=== PATIENT | female | born 1950 | race Caucasian/White ===

== ENCOUNTER 2017-01-05 11:22 | Observation (INO) | payer OTHER ==
[2017-01-05] VITALS (10 sets, daily range): BP systolic 128–173; BP diastolic 65–95; PULSE 56–89; RESP 18–22; TEMP 95.7–98.7; O2SAT 95–98
[~2017-01-05] VITALS: Ht 154.9 cm; Wt 97.5 kg
[~2017-01-05 11:22] MED LIST: ATOR10 PO; FLUC100T41 PO; HYDR15TA PO; LEVA500T PO; PANT20 PO
[2017-01-05] MEDS ORDERED: ATOR10TA15 PO (11:34)
[2017-01-05] MEDS ORDERED: SODIUM CHLORIDE 0.9% FLUSH 5 ML FLUSH IVF PRN ×2 (11:45→13:15)
[2017-01-05] MEDS ORDERED: ASPIRIN 325 MG TAB PO ONE (11:45)
--- NOTE | 2017-01-05 11:46 | PD ---
HPI Chief Complaint: Cardiac Complaint Time Seen by Provider: 11:36 Travel History International Travel<30 days: No Contact w/Intl Traveler<30days: No Traveled to known affect area: No History of Present Illness HPI 66yo F with PMH of HLD presents to the ED with c/o chest pain for 20 minutes. Pt was pushing a cart at [employer] when she felt dull chest pain across her chest and radiating up her jaw. Pain is intermittent, lasting minutes at a time and associated with sob. Had some numbness in left hand as well. Denies any diaphoresis, fever, n/v, abdominal pain, focal weakness. Pt never had similar chest pain like his before. Does not have a geologist petroleum. Pt had routine follow up with her sales audit clerk today. States he actually does not have a connective tissue disease and she was misdiagnosed. Former smoker, quit 3 years ago. Pt has been having cough, URI symptoms for 1 week. 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) Implanted Vascular Access Dvce: Yes Kidney Stones: No Musculoskeletal: Yes (CHRONIC RIGHT ANKLE PAIN) Neurologic: Yes Psychiatric: No Reproductive: Yes (hysterectomy) Respiratory: Yes Immunizations Current: Yes Pneumonia: Yes (FREQUENT MICOPLASMA) Renal Failure: No Sleep Apnea: No Ulcer: No Past Surgical History Abdominal Surgery: Yes (sandhya ) Appendectomy: Yes Body Medical Devices: pins and plates in ankles Cardiac Surgery: No Cholecystectomy: Yes Gynecologic Surgery: Yes (HYSTERECTOMY) Hysterectomy: Yes Oral Surgery: Yes (tonsills) Thoracic Surgery: No Tonsillectomy: Yes Other Surgery: Yes (PLANTERS FACIATIS) Social History Alcohol Use: Yes (1-2 DAYS/ MONTH AT HAPPY HOUR) Tobacco Use: No (DENIES) Substance Use: No Allergies-Medications (Allergen,Severity, Reaction): Coded Allergies: Codeine (Verified Allergy, Severe, NAUSEA, 01/05/17) Reported Meds & Prescriptions Reported Meds & Active Scripts Active Reported Atorvastatin (Atorvastatin Calcium) 10 Mg Tab Unknown Dose PO HS Review of Systems Except as stated in HPI: all other systems reviewed are Neg Physical Exam Narrative GENERAL: 66yo F not in distress. SKIN: Warm and dry. HEAD: Atraumatic. Normocephalic. EYES: Pupils equal and round. No scleral icterus. No injection or drainage. ENT: No nasal bleeding or discharge. Mucous membranes pink and moist. NECK: Trachea midline. No JVD. CARDIOVASCULAR: Regular rate and rhythm. No murmur appreciated. RESPIRATORY: No accessory muscle use. Clear to auscultation. Breath sounds equal bilaterally. GASTROINTESTINAL: Abdomen soft, non-tender, nondistended. No rebound tenderness or guarding. MUSCULOSKELETAL: No obvious deformities. No clubbing. No cyanosis. Trace lower extremity edema. No calf tenderness bilaterally. NEUROLOGICAL: Awake and alert. No obvious cranial nerve deficits. Motor grossly within normal limits. Normal speech. PSYCHIATRIC: Appropriate mood and affect; insight and judgment normal. Data Data Last Documented VS Vital Signs Date Time Temp Pulse Resp B/P Pulse Ox O2 Delivery O2 Flow Rate FiO2 01/05/17 12:35 58 20 142/72 97 01/05/17 11:50 Nasal Cannula 2 01/05/17 11:30 98.7 Orders Basic Metabolic Panel (Bmp) (01/05/17 11:36) Ckmb (Isoenzyme) Profile (01/05/17 11:36) Complete Blood Count With Diff (01/05/17 11:36) Magnesium (Mg) (01/05/17 11:36) Prothrombin Time / Inr (Pt) (01/05/17 11:36) Act Partial Throm Time (Ptt) (01/05/17 11:36) Troponin I (01/05/17 11:36) Chest, Single Ap (01/05/17 11:36) Ecg Monitoring (01/05/17 11:36) Bilateral Bp Monitoring (01/05/17 11:36) Iv Access Insert/Monitor (01/05/17 11:36) Oximetry (01/05/17 11:36) Oxygen Administration (01/05/17 11:36) Aspirin (Aspirin) (01/05/17 11:45) Sodium Chloride 0.9% Flush (Ns Flush) (01/05/17 11:45) Nitroglycerin Sl (Nitrostat Sl) (01/05/17 11:45) CKMB (01/05/17 11:40) CKMB% (01/05/17 11:40) Labs Laboratory Tests Test 01/05/17 11:40 White Blood Count 14.6 TH/MM3 Red Blood Count 4.59 MIL/MM3 Hemoglobin 14.2 GM/DL Hematocrit 41.9 % Mean Corpuscular Volume 91.5 FL Mean Corpuscular Hemoglobin 31.0 PG Mean Corpuscular Hemoglobin 33.9 % Concent Red Cell Distribution Width 12.5 % Platelet Count 366 TH/MM3 Mean Platelet Volume 7.7 FL Neutrophils (%) (Auto) 66.1 % Lymphocytes (%) (Auto) 21.1 % Monocytes (%) (Auto) 5.3 % Eosinophils (%) (Auto) 3.0 % Basophils (%) (Auto) 4.5 % Neutrophils # (Auto) 9.6 TH/MM3 Lymphocytes # (Auto) 3.1 TH/MM3 Monocytes # (Auto) 0.8 TH/MM3 Eosinophils # (Auto) 0.4 TH/MM3 Basophils # (Auto) 0.7 TH/MM3 CBC Comment DIFF FINAL Differential Comment Prothrombin Time 10.8 SEC Prothromb Time International 1.0 RATIO Ratio Activated Partial 29.0 SEC Thromboplast Time Sodium Level 143 MEQ/L Potassium Level 3.8 MEQ/L Chloride Level 107 MEQ/L Carbon Dioxide Level 27.6 MEQ/L Anion Gap 8 MEQ/L Blood Urea Nitrogen 16 MG/DL Creatinine 0.76 MG/DL Estimat Glomerular Filtration 76 ML/MIN Rate Random Glucose 102 MG/DL Calcium Level 8.5 MG/DL Magnesium Level 2.4 MG/DL Total Creatine Kinase 107 U/L Creatine Kinase MB 2.8 NG/ML Troponin I LESS THAN 0.02 NG/ML [facility] Medical Decision Making Medical Screen Exam Complete: Yes Emergency Medical Condition: Yes Interpretation(s) EKG: NSR 63bpm. LAD. Q wave III, aVF. No ST segment elevation or depression. Differential Diagnosis ACS vs. PNA vs. anxiety vs. musculoskeletal pain vs. pericarditis Narrative Course 66yo F with intermittent chest pain that started 20 minutes prior to arrival. Pt has not had this before. Presentation is concerning for ACS. EKG unremarkable. Pt given aspirin 325mg PO and sublingual nitro PRN chest pain. Labs reviewed, mild leukocytosis at 14.6. Troponin negative. CXR showd no acute disease. Pt reevaluated at bedside. States numbness in left hand has resolved. Chest pain is now more on right side. Pt has not had any chest pain work up recently. Will admit to chest pain center for serial EKG and cardiac enzyme. Discussed with patient and she agrees to plan. Discussed with Dr. Sr and accepted to her service. Diagnosis Primary Impression: Chest pain Qualified Code: R07.9 - Chest pain, unspecified type Admitting Information Admitting Physician Requests: Observation Linda Ayala DO Jan 05, 2017 11:46 Linda Ayala DO Jan 05, 2017 11:46
[2017-01-05] MEDS: NITROGLYCERIN 0.4 MG SL 25 TABS/BTL SL SCH ×3 (11:49→12:35)
[2017-01-05 11:55] LABS: AUTOMATED NEUTROPHIL # 9.6 TH/MM3 (1.8-7.7); BASOPHIL # 0.7 TH/MM3 (0-0.2); BASOPHIL % 4.5 % (0.0-2.0); EOSINOPHIL # 0.4 TH/MM3 (0-0.4); HEMATOCRIT 41.9 % (35.0-46.0); HEMO FLAGS DIFF FINAL; LYMPH % 21.1 % (9.0-44.0); LYMPHOCYTE # 3.1 TH/MM3 (1.0-4.8); MEAN CELL VOLUME 91.5 FL (80.0-100.0); MEAN CORPUSCULAR HGB CONC 33.9 % (32.0-36.0); MONO % 5.3 % (0.0-8.0); NEUT % 66.1 % (16.0-70.0); PLATELET COUNT 366 TH/MM3 (150-450); RED BLOOD COUNT 4.59 MIL/MM3 (4.00-5.30); RED CELL DISTRIBUTION WIDTH 12.5 % (11.6-17.2); WHITE BLOOD COUNT 14.6 TH/MM3 (4.0-11.0)
--- NOTE | 2017-01-05 11:58 | RADHPO ---
EXAM DATE/TIME: 01/05/2017 11:43 [facility] COMPARISON: CHEST SINGLE AP, July 12, 2014, 14:45. INDICATIONS : Chest pain. MEDICAL HISTORY : Hypercholesterolemia. Gastroesophageal reflux disease. SURGICAL HISTORY : Tonsillectomy. Cholecystectomy. Hysterectomy. Appendectomy. ORIF right ankle. ENCOUNTER: Initial ACUITY: 1 day PAIN SCORE: 6/10 LOCATION: chest FINDINGS: A single view of the chest demonstrates the lungs to be symmetrically aerated without evidence of mas s, infiltrate or effusion. The cardiomediastinal contours are unremarkable. Osseous structures are intact. CONCLUSION: No acute disease. No significant change has occurred. Rony Bruno MD on January 05, 2017 at 11:56 Board Certified Radiologist. This report was verified electronically.
[2017-01-05 12:03] LABS: CHLORIDE 107 MEQ/L (98-107); POTASSIUM 3.8 MEQ/L (3.5-5.1); SODIUM (NA) 143 MEQ/L (136-145)
[2017-01-05 12:07] LABS: ANION GAP 8 MEQ/L (5-15); BICARBONATE 27.6 MEQ/L (21.0-32.0); MAGNESIUM 2.4 MG/DL (1.5-2.5)
[2017-01-05 12:10] LABS: GLOMERULAR FILTRATION RATE 76 ML/MIN (>89)
[2017-01-05 12:11] LABS: BLOOD UREA NITROGEN 16 MG/DL (7-18)
[2017-01-05 12:14] LABS: CREATINE KINASE 107 U/L (26-192)
[2017-01-05 12:17] LABS: PROTHROMBIN TIME - PATIENT 10.8 SEC (9.8-11.6)
[2017-01-05 12:26] LABS: CKMB 2.8 NG/ML (0.5-3.6)
[2017-01-05] MEDS ORDERED: ACETAMINOPHEN 500 MG CPLT PO PRN (13:15)
[2017-01-05] MEDS ORDERED: MORPHINE SULFATE 4 MG/ML INJ IV PRN (13:15)
[2017-01-05] MEDS ORDERED: NITROGLYCERIN 0.4 MG SL 25 TABS/BTL SL PRN (13:15)
[2017-01-05] MEDS ORDERED: ONDANSETRON HCL 4 MG/2 ML VIAL IV PRN (13:15)
--- NOTE | 2017-01-05 13:34 | HHI.HP ---
[facility] Krista Lepe MD Admission Diagnosis Chest pain Diagnoses: (1) Chest pain Diagnosis: Principal (2) Leukocytosis Diagnosis: Principal Chief Complaint: chest pain Travel History International Travel<30 Days: No Contact w/Intl Traveler <30 Da: No Traveled to Known Affected Are: No History of Present Illness 66-year-old female with history of hyperlipidemia presents with complaint of chest pain. Patient states she was at [employer] pushing the cart when she started to experience chest pain stating it "exploded" with pain throughout her whole chest describing it as heavy. She states pain radiated to her left jaw and she experienced numbness in her left hand. She additionally felt lightheaded. She initially decided to go home and rest, but then turned around and came to the ER. Patient feels better now and states Nitro relieved the pain. She denies having any gas pain or nausea or vomiting. Patient additionally has had some congestion and a dry cough. Denies any fevers. She believes that the chest pain is due to stress. She states she has had a lot of stress related to insurance referrals. She states she hurt her left knee and foot 3-5 weeks ago and went to see the orthopedic doctor but could only have the left knee examined as there was no referral for the foot, and is still awaiting appointment for examination of the foot. She also had issues with seeing her telecommunications line installer today and was on the phone yesterday trying to get a new referral, going back and forth between PCP and specialist. Review of Systems Except as stated in HPI: all other systems reviewed are Neg Past Family Social History Past Medical History Hyperlipidemia Occasional indigestion Left knee arthritis Torn meniscus Past Surgical History ORIF right ankle fracture Cholecystectomy Appendectomy Hysterectomy Tonsillectomy Plantar fasciitis Reported Medications Atorvastatin (Atorvastatin Calcium) 10 Mg Tab Unknown Dose PO HS Allergies: Coded Allergies: Codeine (Verified Allergy, Severe, NAUSEA, 01/05/17) Family History Father: Alcoholic Mother: Had a coronary artery stent placed at age 78. Social History Patient admits to occasional alcohol use. Quit smoking cigarettes 3 years ago. Smoked for 50 years. Physical Exam Vital Signs Vital Signs Date Time Temp Pulse Resp B/P Pulse Ox O2 Delivery O2 Flow Rate FiO2 01/05/17 13:30 56 18 128/71 98 Nasal Cannula 2 01/05/17 12:35 58 20 142/72 97 01/05/17 11:50 58 20 144/74 97 Nasal Cannula 2 153/95 01/05/17 11:46 Nasal Cannula 2 01/05/17 11:46 98 01/05/17 11:30 98.7 89 20 137/65 97 Physical Exam GENERAL: This is a well-nourished, well-developed patient, in no apparent distress. SKIN: No rashes, ecchymoses or lesions. Warm and dry. HEAD: Atraumatic. Normocephalic. EYES: No scleral icterus. No injection or drainage. CARDIOVASCULAR: Regular rate and rhythm without murmurs, gallops, or rubs. RESPIRATORY: Clear to auscultation. Breath sounds equal bilaterally. No wheezes , rales, or rhonchi. GASTROINTESTINAL: Abdomen soft, non-tender, nondistended. No guarding. MUSCULOSKELETAL: No lower extremity edema. 2+ L DP pulse. NEUROLOGICAL: Awake and alert. Motor grossly within normal limits. Normal speech. PSYCHIATRIC: Appears under stress. Normal insight and judgement. Laboratory Laboratory Tests Test 01/05/17 11:40 White Blood Count 14.6 Red Blood Count 4.59 Hemoglobin 14.2 Hematocrit 41.9 Mean Corpuscular Volume 91.5 Mean Corpuscular Hemoglobin 31.0 Mean Corpuscular Hemoglobin 33.9 Concent Red Cell Distribution Width 12.5 Platelet Count 366 Mean Platelet Volume 7.7 Neutrophils (%) (Auto) 66.1 Lymphocytes (%) (Auto) 21.1 Monocytes (%) (Auto) 5.3 Eosinophils (%) (Auto) 3.0 Basophils (%) (Auto) 4.5 Neutrophils # (Auto) 9.6 Lymphocytes # (Auto) 3.1 Monocytes # (Auto) 0.8 Eosinophils # (Auto) 0.4 Basophils # (Auto) 0.7 CBC Comment DIFF FINAL Differential Comment Prothrombin Time 10.8 Prothromb Time International 1.0 Ratio Activated Partial 29.0 Thromboplast Time Sodium Level 143 Potassium Level 3.8 Chloride Level 107 Carbon Dioxide Level 27.6 Anion Gap 8 Blood Urea Nitrogen 16 Creatinine 0.76 Estimat Glomerular Filtration 76 Rate Random Glucose 102 Calcium Level 8.5 Magnesium Level 2.4 Total Creatine Kinase 107 Creatine Kinase MB 2.8 Troponin I LESS THAN 0.02 Result Diagram: 01/05/17 1140 01/05/17 1140 Imaging Last Impressions Chest X-Ray 01/05/17 1136 Signed Impressions: Service Date/Time: Thursday, January 05, 2017 11:43 - CONCLUSION: No acute disease. No significant change has occurred. Rony Bruno MD Assessment and Plan Assessment and Plan 66-year-old female with: Chest pain: Chest pain is likely attributed to stress, but patient did experience pain radiating to the left jaw and numbness in the left hand and Nitro relieved the pain. EKG personally interpreted with normal sinus rhythm and no evidence of ischemia. Troponin less than 0.02. -Serial EKGs and enzymes -325 mg daily aspirin -Nitroglycerin/morphine for pain -Patient is not a candidate for ETT due to her left knee and foot issues. Provided ACS is ruled out, Lexiscan will be ordered for tomorrow morning. Patient had coffee this morning. NPO after midnight. Leukocytosis: CBC with elevated white blood cell count 14.6. likely stress reaction. Patient has some congestion and cough but it is nonproductive. Chest x-ray personally interpreted with no acute disease. Afebrile with good O2 saturation. -Monitor CBC DVT prevention: SCDs. Written by Donna Zeng PA-C acting as scribe for Dr. Sr on 01/05/17 at ~ 1320. The documentation accurately reflects the work and decisions performed face-to- face by me Dr. Sr on 01/05/17 at ~1320. Medical Decision Making Impression and Plan The exam, history, and the medical decision-making described in the above note were completed with the assistance of the mid-level provider. I reviewed and agree with the findings presented. I attest that I had a [id number] encounter with the patient on the same day, and personally performed and documented my assessment and findings in the medical record. Atypical CP which will need further cardiac testing. 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
[2017-01-05 15:07] LABS: CREATINE KINASE 113 U/L (26-192)
[2017-01-05 15:19] LABS: CKMB 2.5 NG/ML (0.5-3.6)
[2017-01-05 18:41] LABS: CREATINE KINASE 82 U/L (26-192)
[2017-01-05] MEDS: SODIUM CHLORIDE 0.9% FLUSH 5 ML FLUSH IVF SCH (21:25)
--- NOTE | 2017-01-05 21:37 | EKG ---
Date Performed: 01/05/2017 Time Performed: 11:35:56 PTAGE: 66 years EKG: Sinus rhythm . Normal ECG PREVIOUS TRACING : 07/12/2014 14.53 Compared to the previous tracing, tachycardia no longer pr esent DOCTOR: Compa Whitt Interpretating Date/Time 01/05/2017 21:37:21
--- NOTE | 2017-01-05 22:42 | EKG ---
Date Performed: 01/05/2017 Time Performed: 17:24:56 PTAGE: 66 years EKG: Sinus rhythm Normal ECG PREVIOUS TRACING : 01/05/2017 14.48 Compared to prior tracing no significant change DOCTOR: Abhishek Smith Interpretating Date/Time 01/05/2017 22:40:18
--- NOTE | 2017-01-05 23:01 | EKG ---
Date Performed: 01/05/2017 Time Performed: 14:48:28 PTAGE: 66 years EKG: Sinus bradycardia Normal ECG except for rate PREVIOUS TRACING : 01/05/2017 11.35 Compared to prior tracing no significant change DOCTOR: Abhishek Smith Interpretating Date/Time 01/05/2017 23:00:04
[2017-01-06] VITALS: BP 138/82; PULSE 69; RESP 16; TEMP 96.7; O2SAT 95
[2017-01-06 04:00] VITALS: BP 143/82; PULSE 70; RESP 20; TEMP 97.4; O2SAT 95
[2017-01-06 07:15] VITALS: O2SAT 95
[2017-01-06 07:19] LABS: AUTOMATED NEUTROPHIL # 8.6 TH/MM3 (1.8-7.7); BASOPHIL # 0.1 TH/MM3 (0-0.2); BASOPHIL % 0.5 % (0.0-2.0); EOSINOPHIL # 0.4 TH/MM3 (0-0.4); EOSINOPHIL % 3.2 % (0.0-4.0); HEMATOCRIT 43.5 % (35.0-46.0); LYMPH % 23.3 % (9.0-44.0); MEAN CELL VOLUME 92.2 FL (80.0-100.0); MEAN CORPUSCULAR HEMOGLOBIN 30.4 PG (27.0-34.0); MONO % 4.7 % (0.0-8.0); NEUT % 68.3 % (16.0-70.0); PLATELET COUNT 349 TH/MM3 (150-450); RED BLOOD COUNT 4.72 MIL/MM3 (4.00-5.30); WHITE BLOOD COUNT 12.7 TH/MM3 (4.0-11.0)
[2017-01-06 07:23] LABS: HEMO FLAGS DIFF FINAL
[2017-01-06 08:00] VITALS: BP 123/81; PULSE 66; RESP 17; TEMP 97.9; O2SAT 94
[2017-01-06] MEDS ORDERED: REGADENOSON INJ 0.4 MG/5 ML SYR IV ONE (08:17)
[2017-01-06] MEDS: SODIUM CHLORIDE 0.9% FLUSH 5 ML FLUSH IVF SCH (09:00)
[2017-01-06] MEDS ORDERED: ASPIRIN 325 MG TAB PO SCH (09:00)
--- NOTE | 2017-01-06 09:03 | RADHPO ---
EXAM DATE/TIME: 01/06/2017 08:00 [facility] COMPARISON: No previous studies available for comparison. INDICATIONS : Mid chest pain radiating to the jaw for one day. Unable to walk on treadmill. DOSE: 26.6 mCi Tc99m Myoview at stress. 8.7 mCi Tc99m Myoview at rest. 0.4 mg Lexiscan STRESS SYMPTOMS: Stomach cramps. EJECTION FRACTION: 70% MEDICAL HISTORY : Hyperlipidemia. SURGICAL HISTORY : Hysterectomy. Tonsillectomy. Cholecystectomy. ENCOUNTER: Initial ACUITY: 1 day PAIN SCALE: 10/10 LOCATION: Midsternal chest TECHNIQUE: The patient underwent pharmacologic stress with infusion of prescribed dose. Continuous ECG tracing was monitored during stress. Gated SPECT imaging was performed after stress and conventional SPECT i maging was performed at rest. The examination was performed on a SPECT/CT scanner, both attenuation and non-corrected datasets were reviewed. FINDINGS: DISTRIBUTION: The maximum perfused segment at stress is in the anterior wall. PERFUSION STUDY: The pattern of perfusion at stress is within normal limits. GATED STUDY: There is intact wall motion and thickening without hypokinetic or dyskinetic segments. CONCLUSION: Normal examination. RISK CATEGORY: Low (<1% Annual Mortality Rate) Thad Marcos MD on January 06, 2017 at 9:00 Board Certified Radiologist. This report was verified electronically.
--- NOTE | 2017-01-06 09:17 | HHI.DCPOC ---
Discharge Care Plan Diagnosis: (1) Chest pain (2) Leukocytosis Your Health Problems Are: Anxiety Chest Pain Goals to Promote Your Health * To prevent worsening of your condition and complications * To maintain your health at the optimal level Directions to Meet Your Goals Take your medications as prescribed Follow your dietary instruction Follow activity as directed Keep your appointments as scheduled Take your immunizations and boosters as scheduled If your symptoms worsen call your PCP, if no PCP go to Urgent Care Center or Emergency Room Smoking is Dangerous to Your Health. Avoid second hand smoke Call the 24-hour hour crisis hotline for domestic abuse at Donna Zeng Jan 06, 2017 09:17
[2017-01-06 11:15] VITALS: PULSE 69
--- NOTE | 2017-01-06 13:52 | HHI.DS ---
Discharge Summary Admission Date Jan 05, 2017 at 13:01 Discharge Date: Jan 06, 2017 Admitting Diagnosis Chest pain (1) Chest pain ICD Code: R07.9 Diagnosis: Principal (2) Leukocytosis ICD Code: D72.829 Diagnosis: Principal Procedures none Brief History - From Admission 66-year-old female with history of hyperlipidemia presents with complaint of chest pain. Patient states she was at [employer] pushing the cart when she started to experience chest pain stating it "exploded" with pain throughout her whole chest describing it as heavy. She states pain radiated to her left jaw and she experienced numbness in her left hand. She additionally felt lightheaded. She initially decided to go home and rest, but then turned around and came to the ER. Patient feels better now and states Nitro relieved the pain. She denies having any gas pain or nausea or vomiting. Patient additionally has had some congestion and a dry cough. Denies any fevers. She believes that the chest pain is due to stress. She states she has had a lot of stress related to insurance referrals. She states she hurt her left knee and foot 3-5 weeks ago and went to see the orthopedic doctor but could only have the left knee examined as there was no referral for the foot, and is still awaiting appointment for examination of the foot. She also had issues with seeing her carpenter railcar today and was on the phone yesterday trying to get a new referral, going back and forth between PCP and specialist. CBC/BMP: 01/06/17 0650 01/05/17 1140 Significant Findings Laboratory Tests Test 01/05/17 01/05/17 01/05/17 01/06/17 11:40 14:40 17:35 06:50 White Blood Count 14.6 TH/MM3 12.7 TH/MM3 (4.0-11.0) (4.0-11.0) Basophils (%) (Auto) 4.5 % (0.0-2.0) Neutrophils # (Auto) 9.6 TH/MM3 8.6 TH/MM3 (1.8-7.7) (1.8-7.7) Basophils # (Auto) 0.7 TH/MM3 (0-0.2) Estimat Glomerular Filtration 76 ML/MIN (>89) Rate Troponin I LESS THAN 0.02 LESS THAN 0.02 LESS THAN 0.02 NG/ML NG/ML NG/ML (0.02-0.05) (0.02-0.05) (0.02-0.05) Imaging Last Impressions Myocardial Perfusion Scan Nuc Med 01/06/17 0700 Signed Impressions: Service Date/Time: December 08:00 - CONCLUSION: Normal examination. RISK CATEGORY: Low (<1%% Annual Mortality Rate) Thad Marcos MD Chest X-Ray 01/05/17 1136 Signed Impressions: Service Date/Time: Thursday, January 05, 2017 11:43 - CONCLUSION: No acute disease. No significant change has occurred. Rony Bruno MD PE at Discharge GENERAL: This is a well-nourished, well-developed patient, in no apparent distress. CARDIOVASCULAR: Regular rate and rhythm without murmurs, gallops, or rubs. RESPIRATORY: Clear to auscultation. Breath sounds equal bilaterally. No wheezes , rales, or rhonchi. GASTROINTESTINAL: Abdomen soft, non-tender, nondistended. Normal active bowel sounds MUSCULOSKELETAL: Extremities without clubbing, cyanosis, or edema. NEURO: Alert & Oriented x4 to person, place, time, situation. Moves all ext x4 Pt update on day of discharge Patient seen in follow up for atypical CP. ST negative. Patient will eed to follow up for anxiety with pcp Hospital Course Patient admitted with CP that appears non-cardiac after ST is negative, Overall no further complaints other than anxiety Pt Condition on Discharge: Good Discharge Disposition: Discharge Home Discharge Time: > 30 minutes Discharge Instructions DIET: Follow Instructions for: Heart Healthy Diet Activities you can perform: Regular-No Restrictions Follow up Referrals: PCP Follow-up - 2-3 Days with Krista Lepe MD Continued Medications: Atorvastatin (Atorvastatin) 10 Mg Tab Unknown Dose PO HS Cholesterol Management #30 Ref 0 TAB Yumi Sr MD Jan 06, 2017 13:52
--- NOTE | 2017-01-06 19:43 | TR ---
Date Performed: 01/06/2017 Time Performed: 08:06:56 DOCTOR: Freya Barboza DRUG LIST: CLINICAL HISTORY: CONTRAINDICATION TO ETT REASON FOR TEST: CANNOT DO ETT REASON FOR ENDING: OBSERVATION: CONCLUSION: Lexiscan stress test was performed under standard four minute protocol. Radionuclid e was injected one minute prior to ending the test. No electrocardiographic abormalities were present to suggest ischemia. Nuclear imaging and interpretation are pending. COMMENTS:
== END 2017-01-06 11:26 | disposition home or self-care (01) ==
LOC: PHED 11:22 → PHEDA 13:01 → PH3A 13:54
PROVIDERS: ADMIT Hospitalist; ATTEND Hospitalist
DX: R07.9 Chest pain, unspecified (principal); R06.02 Shortness of breath; R20.0 Anesthesia of skin; Z87.891 Personal history of nicotine dependence; R05 Cough; E78.00 Pure hypercholesterolemia, unspecified; K21.9 Gastro-esophageal reflux disease without esophagitis; D72.829 Elevated white blood cell count, unspecified; R42 Dizziness and giddiness; E78.5 Hyperlipidemia, unspecified; K30 Functional dyspepsia; M17.12 Unilateral primary osteoarthritis, left knee
CPT/HCPCS: 71010; 78452; 80048; 82550; 82552; 83735; 84484; 85025; 85610; 85730; 93005; 93017; 99285; A9502; G0378; J2785

== ENCOUNTER 2017-04-02 19:23 | Inpatient (IN) | payer OTHER, MEDICARE ==
[~2017-04-02] VITALS: Ht 154.9 cm; Wt 103.4 kg
[~2017-04-02 19:23] MED LIST changes: -ATOR10 PO; +ATOR10TA15 PO; -FLUC100T41 PO; -HYDR15TA PO; -LEVA500T PO; -PANT20 PO
[2017-04-02 19:28] VITALS: BP 107/71; PULSE 110; RESP 18; TEMP 98.3
[2017-04-02] MEDS ORDERED: BROMSYP PO (19:49)
[2017-04-02] MEDS ORDERED: IPRASOL INH (19:49)
[2017-04-02] MEDS ORDERED: METH4TAB6 PO (19:49)
[2017-04-02] MEDS ORDERED: FLUT1SPR5 EACH NARE (19:49)
[2017-04-02] MEDS ORDERED: AZIT500T2 PO (19:49)
[2017-04-02] MEDS ORDERED: FLUT1INH INH (19:49)
[2017-04-02] MEDS ORDERED: CETI10 PO (19:49)
[2017-04-02] MEDS ORDERED: UMEC1AER INH (19:49)
--- NOTE | 2017-04-02 19:53 | PD ---
HPI Chief Complaint: Respiratory Distress Time Seen by Provider: 19:50 Travel History International Travel<30 days: Yes Contact w/Intl Traveler<30days: Yes Name of Country Traveled to: [place], [place] Traveled to known affect area: No History of Present Illness HPI 66-year-old female presents to the emergency department for complaint of persistent cough with shortness of breath and secondary abdominal muscle pain due to persistent unremitting cough. Patient has history of previous similar symptoms and diagnosed with mycoplasma pneumonia. Patient's had no fever or chills. Patient symptoms have been present for 7 weeks. Patient has completed 2 courses of oral steroids along with a course of azithromycin and has been using as needed nebulized treatments rescue inhaler and Breo. Patient was hospitalized approximately 8 weeks ago and evaluated for chest pain stress test was done and was negative reportedly. Patient's had no chest pain. Patient denies personal history of bronchitis and emphysema or COPD. Patient denies history of hypertension or diabetes. Patient is a nonsmoker times 3 years but used to smoke 1 ppd. Patient denies personal history family history of clotting disorder. Patient denies any pleuritic chest pain. Patient's cough has been nonproductive. Patient does not use supplemental oxygen at home. Patient has been sleeping upright due to ongoing cough. No report of lower extremity pain or swelling. States she is not improving as an outpatient. Patient just saw her primary care provider this week 03/28/17. 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) Implanted Vascular Access Dvce: Yes Kidney Stones: No Musculoskeletal: Yes (CHRONIC RIGHT ANKLE PAIN) Neurologic: Yes Psychiatric: No Reproductive: Yes (hysterectomy) Respiratory: Yes (PNA) Immunizations Current: Yes Pneumonia: Yes (FREQUENT MICOPLASMA) Renal Failure: No Sleep Apnea: No Ulcer: No ?: Not Past Surgical History Abdominal Surgery: Yes (sandhya ) Appendectomy: Yes Body Medical Devices: pins and plates in ankles Cardiac Surgery: No Cholecystectomy: Yes Gynecologic Surgery: Yes (HYSTERECTOMY) Hysterectomy: Yes Oral Surgery: Yes (tonsills) Thoracic Surgery: No Tonsillectomy: Yes Other Surgery: Yes (PLANTERS FACIATIS) Social History Alcohol Use: Yes (1-2 DAYS/ MONTH AT HAPPY HOUR) Tobacco Use: No (DENIES) Substance Use: No Allergies-Medications (Allergen,Severity, Reaction): Coded Allergies: Codeine (Verified Allergy, Severe, NAUSEA, 04/02/17) Reported Meds & Prescriptions Reported Meds & Active Scripts Active Reported Methylprednisolone 4 Mg Tab 4 Mg PO DAILY Breo Ellipta Inh (Fluticasone/Vilanterol) 100-25 Mcg/Act Inh 1 Puff INH DAILY Use daily at the same time. Anoro Ellipta Inh (Umeclidinium/Vilanterol) 62.5-25 Mcg/Act Aero 1 Puff INH DAILY Duoneb (Ipratropium-Albuterol Neb) 0.5-2.5 Mg/3 Ml Neb 1 Nebule INH Q6HR NEB Flonase Nasal [place] (Fluticasone Nasal [place]) 50 Mcg/Act [place] 50 Mcg EACH NARE BID Azithromycin 500 Mg Tab 500 Mg PO DAILY Cetirizine (Cetirizine HCl) 10 Mg Tab 10 Mg PO DAILY Bromfed DM Liq (Bimbsvsvrhwjoay-Wfdomterauujywb-AF Liq) 30-2-10 Mg/5 Ml Syrp 10 Ml PO Q6H PRN Atorvastatin (Atorvastatin Calcium) 10 Mg Tab Unknown Dose PO HS Review of Systems Except as stated in HPI: all other systems reviewed are Neg General / Constitutional: No: Fever, Chills Eyes: No: Visual changes HENT: Positive: Congestion Cardiovascular: Positive: Dyspnea on exertion, No: Chest Pain or Discomfort, Diaphoresis Respiratory: Positive: Cough, Shortness of Breath, Wheezing Gastrointestinal: No: Abdominal Pain Genitourinary: No: Flank Pain Musculoskeletal: No: Myalgias, Arthralgias, Edema Skin: No Rash Neurologic: No: Weakness Psychiatric: Positive: Anxiety Endocrine: No: Heat Intolerance Hematologic/Lymphatic: No: Easy Bruising Physical Exam Narrative GENERAL: Well-developed well-nourished mildly anxious female with mild respiratory distress with wheezing; no hoarseness or stridor. SKIN: Warm and dry. HEAD: Normocephalic. EYES: No scleral icterus. No injection or drainage. NECK: Supple, trachea midline. No JVD or lymphadenopathy. CARDIOVASCULAR: Regular rate and rhythm without murmurs, gallops, or rubs. RESPIRATORY: Breath sounds equal bilaterally diminished with expiratory wheezing. No accessory muscle use. GASTROINTESTINAL: Abdomen soft, non-tender, nondistended. MUSCULOSKELETAL: No cyanosis, or edema. BACK: Nontender without obvious deformity. No CVA tenderness. Data Data Last Documented VS Vital Signs Date Time Temp Pulse Resp B/P Pulse Ox O2 Delivery O2 Flow Rate FiO2 04/02/17 20:04 96 Nasal Cannula 2.00 04/02/17 19:50 20 04/02/17 19:28 98.3 110 107/71 Orders Complete Blood Count With Diff (04/02/17 19:50) Basic Metabolic Panel (Bmp) (04/02/17 19:50) B-Type Natriuretic Peptide (04/02/17 19:50) Magnesium (Mg) (04/02/17 19:50) Ckmb (Isoenzyme) Profile (04/02/17 19:50) Troponin I (04/02/17 19:50) Iv Access Insert/Monitor (04/02/17 19:50) Electrocardiogram (04/02/17 19:50) Ecg Monitoring (04/02/17 19:50) Oximetry (04/02/17 19:50) Oxygen Administration (04/02/17 19:50) Chest, Single Ap (04/02/17 19:50) Sodium Chloride 0.9% Flush (Ns Flush) (04/02/17 20:00) Methylprednisolone So Succ Inj (Solumedr (04/02/17 20:00) Albuterol-Ipratropium Neb (Duoneb Neb) (04/02/17 20:00) Blood Culture (04/02/17 20:02) Lactic Acid (04/02/17 20:02) Albuterol-Ipratropium Neb (Duoneb Neb) (04/02/17 20:45) CKMB (04/02/17 20:15) CKMB% (04/02/17 20:15) Piperacil-Tazo 4.5 Gm Premix (Zosyn 4.5 (04/02/17 21:00) Lorazepam Inj (Ativan Inj) (04/02/17 21:00) Benzonatate (Tessalon) (04/02/17 21:00) D-Dimer (04/02/17 21:08) Admit Order (Ed Use Only) (04/02/17 ) ^ Saline Lock (04/02/17 21:24) Resp Oxygen Rob C Titrat 1-4 L (04/02/17 ) Notify Dr: Other (04/02/17 21:24) Sodium Chloride 0.9% Flush (Ns Flush) (04/03/17 09:00) Labs Laboratory Tests Test 04/02/17 04/02/17 20:15 21:16 White Blood Count 15.2 TH/MM3 Red Blood Count 4.42 MIL/MM3 Hemoglobin 13.6 GM/DL Hematocrit 41.1 % Mean Corpuscular Volume 93.0 FL Mean Corpuscular Hemoglobin 30.8 PG Mean Corpuscular Hemoglobin 33.1 % Concent Red Cell Distribution Width 13.4 % Platelet Count 312 TH/MM3 Mean Platelet Volume 7.7 FL Neutrophils (%) (Auto) 78.2 % Lymphocytes (%) (Auto) 16.0 % Monocytes (%) (Auto) 4.3 % Eosinophils (%) (Auto) 0.2 % Basophils (%) (Auto) 1.3 % Neutrophils # (Auto) 11.9 TH/MM3 Lymphocytes # (Auto) 2.4 TH/MM3 Monocytes # (Auto) 0.7 TH/MM3 Eosinophils # (Auto) 0.0 TH/MM3 Basophils # (Auto) 0.2 TH/MM3 CBC Comment DIFF FINAL Differential Comment Sodium Level 141 MEQ/L Potassium Level 3.7 MEQ/L Chloride Level 105 MEQ/L Carbon Dioxide Level 29.0 MEQ/L Anion Gap 7 MEQ/L Blood Urea Nitrogen 20 MG/DL Creatinine 1.00 MG/DL Estimat Glomerular Filtration 55 ML/MIN Rate Random Glucose 122 MG/DL Lactic Acid Level 1.7 mmol/L Calcium Level 8.2 MG/DL Magnesium Level 2.1 MG/DL Total Creatine Kinase 321 U/L Creatine Kinase MB 3.3 NG/ML Creatine Kinase MB % 1.0 % Troponin I LESS THAN 0.02 NG/ML B-Type Natriuretic Peptide 66 PG/ML D-Dimer Quantitative (PE/DVT) 0.65 MG/L [facility] Medical Decision Making Medical Screen Exam Complete: Yes Emergency Medical Condition: Yes Medical Record Reviewed: Yes Interpretation(s) EKG sinus tachycardia rate [address] elevation or injury pattern change or progression inferiorly in 3 and aVF; noted 01/05/17 CT pulmonary angiogram:CONCLUSION: 1. Negative for pulmonary embolus. 2. Peribronchial thickening in both lungs, especially in the lower lobes with mucoid plugging and minimal cylindrical bronchiectasis. Differential diagnosis includes atypical mycobacterial infection. No significant lung consolidation. There is also mediastinal adenopathy with measurements given above. This could be reactive in nature. Followup recommended. Adria Astudillo MD on April 02, 2017 at 22:53 Board Certified Radiologist. This report was verified electronically. Differential Diagnosis Dyspnea, bronchitis, pneumonia, CHF, PE, allergic reactive airways disease, uncontrolled hypertension Narrative Course 66-year-old female with 7 weeks of bronchospastic cough not responding well to outpatient therapy presents with complaint of shortness of breath recent out of country travel with no prior history of clotting disorder recent stress test low risk for CAD ischemia. Placed on radiation monitor and supplemental oxygen IV access obtained; specimens collected and sent for resulting EKG performed shows sinus tachycardia no acute ST elevation or injury pattern change noted. 18. Patient administered Solu-Medrol 125 mg IV along with 2 DuoNeb updrafts. Additional DuoNeb updraft administered; wheezing has diminished somewhat. Patient continues to have ongoing bronchospastic coughing; patient administered Tessalon Erica, saturations 96-98% on 2 L appears mildly anxious patient given Ativan 0.5 mg IV. D-dimer will be added to patient's lab work in view of recent travel in the past 30 days although symptoms have been present prior to onset of travel. D-dimer elevated; patient is admitted Ct pulmonary angiogram ordered. @ 2320 CTA pulmonary: negative for PE, bronchiectasis noted per reading radiologist. Sepsis Criteria SIRS Criteria (2 or more): Heart rate over 90, WBC > 09300, < 4000 or > 10% bands Physician Communication Physician Communication call placed to [facility] service --discussed with Dr Anderson will accept for admission Diagnosis Primary Impression: Bronchitis with bronchospasm Additional Impression: SIRS (systemic inflammatory response syndrome) Admitting Information Admitting Physician Requests: Observation Maricruz Martini MD April 02, 2017 19:53
[2017-04-02 20:00] VITALS: O2SAT 98
[2017-04-02] MEDS ORDERED: SODIUM CHLORIDE 0.9% FLUSH 10 ML FLUSH IVF PRN ×2 (20:00→21:30)
[2017-04-02] MEDS ORDERED: methylPREDNISolone SOD SUCC 125 MG/2 ML VIAL IVP ONE (20:00)
[2017-04-02 20:04] VITALS: O2SAT 96
[2017-04-02] MEDS: RESP: ALBUTEROL 2.5 MG/IPRATROPIUM 0.5 MG NEB (SCH) INH ×2 (20:04→20:15)
[2017-04-02 20:35] LABS: AUTOMATED NEUTROPHIL # 11.9 TH/MM3 (1.8-7.7); BASOPHIL # 0.2 TH/MM3 (0-0.2); BASOPHIL % 1.3 % (0.0-2.0); EOSINOPHIL % 0.2 % (0.0-4.0); HEMATOCRIT 41.1 % (35.0-46.0); LYMPHOCYTE # 2.4 TH/MM3 (1.0-4.8); MEAN CORPUSCULAR HEMOGLOBIN 30.8 PG (27.0-34.0); MEAN CORPUSCULAR HGB CONC 33.1 % (32.0-36.0); MONO % 4.3 % (0.0-8.0); NEUT % 78.2 % (16.0-70.0); PLATELET COUNT 312 TH/MM3 (150-450); RED BLOOD COUNT 4.42 MIL/MM3 (4.00-5.30); RED CELL DISTRIBUTION WIDTH 13.4 % (11.6-17.2); WHITE BLOOD COUNT 15.2 TH/MM3 (4.0-11.0)
[2017-04-02 20:41] LABS: HEMO FLAGS DIFF FINAL
--- NOTE | 2017-04-02 20:41 | RADHPO ---
EXAM DATE/TIME: 04/02/2017 20:27 [facility] COMPARISON: CHEST SINGLE AP, January 05, 2017, 11:43. INDICATIONS : Cough and congestion. MEDICAL HISTORY : None. SURGICAL HISTORY : None. ENCOUNTER: Initial ACUITY: 2 months PAIN SCORE: 0/10 LOCATION: Bilateral chest FINDINGS: A single view of the chest demonstrates the lungs to be symmetrically aerated without evidence of mas s, infiltrate or effusion. The cardiomediastinal contours are unremarkable. Osseous structures are intact. CONCLUSION: Normal examination. Thad Roa MD on April 02, 2017 at 20:40 Board Certified Radiologist. This report was verified electronically.
[2017-04-02 20:43] LABS: CHLORIDE 105 MEQ/L (98-107); POTASSIUM 3.7 MEQ/L (3.5-5.1); SODIUM (NA) 141 MEQ/L (136-145)
[2017-04-02] MEDS ORDERED: RESP: ALBUTEROL 2.5 MG/IPRATROPIUM 0.5 MG NEB (SCH) NEB ONE (20:45)
[2017-04-02 20:48] LABS: ANION GAP 7 MEQ/L (5-15); MAGNESIUM 2.1 MG/DL (1.5-2.5)
[2017-04-02 20:51] LABS: GLOMERULAR FILTRATION RATE 55 ML/MIN (>89)
[2017-04-02 20:52] LABS: BLOOD UREA NITROGEN 20 MG/DL (7-18)
[2017-04-02 20:54] LABS: CREATINE KINASE 321 U/L (26-192)
[2017-04-02] MEDS ORDERED: LORazepam 2 MG/ML VIAL IV PUSH ONE (21:00)
[2017-04-02] MEDS ORDERED: PIPERACIL-TAZO 4.5 GM PREMIX 100 ML IV ONE (21:00)
[2017-04-02] MEDS ORDERED: BENZONATATE 100 MG CAP PO ONE (21:00)
[2017-04-02 21:07] LABS: CKMB 3.3 NG/ML (0.5-3.6)
[2017-04-02 21:30] VITALS: BP 177/77; PULSE 114; RESP 20; O2SAT 95
[2017-04-02] MEDS ORDERED: BISACODYL 10 MG SUPP RECTAL PRN (21:45)
[2017-04-02] MEDS ORDERED: ONDANSETRON HCL 4 MG/2 ML VIAL IVP PRN (21:45)
[2017-04-02] MEDS ORDERED: BROMPHENIR/PSEUDOEPH/DEXTROM SYRUP 5 ML CUP PO PRN (21:45)
[2017-04-02] MEDS ORDERED: SODIUM CHLOR 0.9% 1000 ML INJ 1,000 ML IV SCH (22:00)
[2017-04-02 22:49] VITALS: BP 133/62; PULSE 103; RESP 20; O2SAT 96
[2017-04-02] MEDS ORDERED: IOHEXOL 350 MG/ML 10 ML VIAL (for RAD DIAG) IV ONE ×2 (22:57→22:58)
--- NOTE | 2017-04-02 23:02 | RADHPO ---
EXAM DATE/TIME: 04/02/2017 22:16 [facility] COMPARISON: No previous studies available for comparison. INDICATIONS : Cough and shortness of breath for seven weeks. IV CONTRAST: 76 cc Omnipaque 350 (iohexol) IV RADIATION DOSE: 20.83 CTDIvol (mGy) MEDICAL HISTORY : Gastroesophageal reflux disease. SURGICAL HISTORY : Tonsillectomy. Cholecystectomy.Hysterectomy. ENCOUNTER: Initial ACUITY: 2 months PAIN SCALE: 3/10 LOCATION: chest TECHNIQUE: Volumetric scanning of the chest was performed using a pulmonary embolism protocol MIP images were re constructed. Using automated exposure control and adjustment of the mA and/or kV according to patien t size, radiation dose was kept as low as reasonably achievable to obtain optimal diagnostic quality images. FINDINGS: No filling defects identified within the pulmonary arteries to suggest pulmonary embolic disease. There is mediastinal adenopathy with a 1.6 cm right paratracheal lymph node and 1.6 cm subcarinal lym ph node. There is clearly peribronchial thickening in the lungs, especially in the lower lobes with v isible mucoid plugging in some airways. Mild cylindrical bronchiectasis. There is no pleural or pericardial effusion. Moderate coronary calcifications. No acute findings in t he upper abdomen. Extensive cystic change noted upper pole left kidney similar to prior abdomen CT 20 14. CONCLUSION: 1. Negative for pulmonary embolus. 2. Peribronchial thickening in both lungs, especially in the lower lobes with mucoid plugging and min imal cylindrical bronchiectasis. Differential diagnosis includes atypical mycobacterial infection. No significant lung consolidation. There is also mediastinal adenopathy with measurements given above. This could be reactive in nature. Followup recommended. Adria Astudillo MD on April 02, 2017 at 22:53 Board Certified Radiologist. This report was verified electronically.
[2017-04-02] MEDS: methylPREDNISolone SOD SUCC 40 MG/1 ML VIAL IV PUSH SCH (23:51)
[2017-04-03] VITALS (8 sets, daily range): BP systolic 149–166; BP diastolic 77–93; PULSE 87–108; RESP 20–22; TEMP 96.5–98.3; O2SAT 91–97
[2017-04-03] MEDS: ACETAMINOPHEN 325 MG TAB PO PRN ×2 (00:18→10:43)
[2017-04-03] MEDS: RESP: ALBUTEROL 2.5 MG/IPRATROPIUM 0.5 MG NEB (PRN) NEB ×2 (00:20→05:18)
[2017-04-03] MEDS: methylPREDNISolone SOD SUCC 40 MG/1 ML VIAL IV PUSH SCH ×3 (05:06→17:05)
[2017-04-03 07:46] LABS: AUTOMATED NEUTROPHIL # 11.2 TH/MM3 (1.8-7.7); BASOPHIL # 0.1 TH/MM3 (0-0.2); BASOPHIL % 0.8 % (0.0-2.0); EOSINOPHIL % 0.1 % (0.0-4.0); HEMATOCRIT 40.6 % (35.0-46.0); HEMO FLAGS DIFF FINAL; LYMPH % 7.8 % (9.0-44.0); MEAN CELL VOLUME 93.3 FL (80.0-100.0); MEAN CORPUSCULAR HEMOGLOBIN 31.3 PG (27.0-34.0); MEAN CORPUSCULAR HGB CONC 33.6 % (32.0-36.0); MONO % 0.7 % (0.0-8.0); NEUT % 90.6 % (16.0-70.0); PLATELET COUNT 293 TH/MM3 (150-450); RED BLOOD COUNT 4.36 MIL/MM3 (4.00-5.30); RED CELL DISTRIBUTION WIDTH 13.8 % (11.6-17.2); WHITE BLOOD COUNT 12.4 TH/MM3 (4.0-11.0)
[2017-04-03] MEDS: RESP: ALBUTEROL 2.5 MG/IPRATROPIUM 0.5 MG NEB (SCH) NEB ×4 (07:49→19:01)
[2017-04-03 07:53] LABS: CHLORIDE 106 MEQ/L (98-107); POTASSIUM 4.2 MEQ/L (3.5-5.1); SODIUM (NA) 141 MEQ/L (136-145)
[2017-04-03 07:57] LABS: ANION GAP 8 MEQ/L (5-15); BICARBONATE 27.1 MEQ/L (21.0-32.0); BLOOD UREA NITROGEN 16 MG/DL (7-18)
[2017-04-03 08:00] LABS: ALT (GPT) 46 U/L (10-53); AST (GOT) 29 U/L (15-37); GLOMERULAR FILTRATION RATE 63 ML/MIN (>89)
[2017-04-03 08:01] LABS: TOTAL BILIRUBIN ADULT 0.4 MG/DL (0.2-1.0)
[2017-04-03 08:03] LABS: ALKALINE PHOSPHATASE 65 U/L (45-117)
[2017-04-03] MEDS: guaiFENesin E.R. 600 MG TAB PO SCH ×2 (08:06→21:41)
[2017-04-03] MEDS: BUDESONIDE-FORMOTEROL 160/4.5 MCG INHALER INH SCH ×2 (08:06→21:42)
[2017-04-03] MEDS: UMECLIDINIUM 62.5 MCG/VILANTEROL 25 MCG INHALER INH SCH (08:07)
[2017-04-03] MEDS: SODIUM CHLORIDE 0.9% FLUSH 10 ML FLUSH IV FLUSH SCH ×2 (08:08→19:56)
[2017-04-03] MEDS ORDERED: SODIUM CHLORIDE 0.9% FLUSH 10 ML FLUSH IV FLUSH SCH (09:00)
[2017-04-03] MEDS ORDERED: PROMETHAZINE/CODEINE 6.25 MG/10 MG/5 ML CUP PO PRN (13:15)
[2017-04-03] MEDS ORDERED: BROMPHENIR/PSEUDOEPH/DEXTROM SYRUP 5 ML CUP PO PRN (13:30)
--- NOTE | 2017-04-03 13:34 | HHI.HP ---
[facility] Krista Lepe MD Admission Diagnosis bronchitis w/ bronchospasm Diagnoses: (1) Sepsis Diagnosis: Principal (2) COPD exacerbation Diagnosis: Principal (3) Bronchitis with bronchospasm Diagnosis: Principal (4) Environmental allergies Diagnosis: Principal (5) HTN (hypertension) Diagnosis: Principal (6) Elevated random blood glucose level Diagnosis: Principal Chief Complaint: "couldn't breathe" Travel History International Travel<30 Days: Yes Contact w/Intl Traveler <30 Da: Yes Name of Country Traveled to: [place] Traveled to Known Affected Are: No History of Present Illness Written by Donna Zeng PA-C acting as scribe for Dr. Brink on 04/03/17 at ~ 1300. 66-year-old female with history of HLD, occasional indigestion, and mycoplasma pneumonia per patient is admitted for COPD exacerbation/acute bronchitis. The patient states that she "couldn't breathe". The patient states symptom onset was 7 weeks ago and she has been undergoing treatment by her primary care physician. She states she had been prescribed a Z-Gabe, 2 courses of Medrol Dosepak, and has been using four nebulizers per day without relief. Also states she has a "steroid puffer". She denies diagnosis of COPD but has a 50 year smoking history. States she had one fever of "99". Admits to cough , and points to epigastric region stating she has to hold the area because she feels like she a hernia from coughing; denies abdominal pain otherwise. She states she is full of phlegm in her chest, but cannot cough it up. She states she vomited yesterday from regurgitation after eating dinner. She denies oxygen use at home. She has a headache over the sabianist regions bilaterally from coughing. Right now she has some watery eyes and runny nose and has been on Zyrtec for allergies. Admits to dry throat, but no soreness. Admits to dizziness after neb use. Denies diarrhea. Review of Systems Except as stated in HPI: all other systems reviewed are Neg Past Family Social History Past Medical History Mycoplasma pneumonia per patient Hyperlipidemia Occasional indigestion Left knee arthritis Torn meniscus Past Surgical History ORIF right ankle fracture Cholecystectomy Appendectomy Hysterectomy Tonsillectomy Plantar fasciitis Reported Medications Methylprednisolone 4 Mg Tab 4 Mg PO DAILY Breo Ellipta Inh (Fluticasone/Vilanterol) 100-25 Mcg/Act Inh 1 Puff INH DAILY Use daily at the same time. Anoro Ellipta Inh (Umeclidinium/Vilanterol) 62.5-25 Mcg/Act Aero 1 Puff INH DAILY Duoneb (Ipratropium-Albuterol Neb) 0.5-2.5 Mg/3 Ml Neb 1 Nebule INH Q6HR NEB Flonase Nasal [place] (Fluticasone Nasal [place]) 50 Mcg/Act [place] 50 Mcg EACH NARE BID Azithromycin 500 Mg Tab 500 Mg PO DAILY Cetirizine (Cetirizine HCl) 10 Mg Tab 10 Mg PO DAILY Bromfed DM Liq (Pthcdleauzasrgn-Bokfpumxvswpwpe-NF Liq) 30-2-10 Mg/5 Ml Syrp 10 Ml PO Q6H PRN Atorvastatin (Atorvastatin Calcium) 10 Mg Tab Unknown Dose PO HS Allergies: Coded Allergies: Codeine (Verified Allergy, Severe, NAUSEA, 04/02/17) Family History Father: Alcoholic Mother: Had a coronary artery stent placed at age 78. Social History Patient admits to occasional alcohol use. Quit smoking cigarettes 3 years ago. Smoked for 50 years. Physical Exam Vital Signs Vital Signs Date Time Temp Pulse Resp B/P Pulse Ox O2 Delivery O2 Flow Rate FiO2 04/03/17 08:00 96.9 93 21 160/83 91 04/03/17 07:52 96 Nasal Cannula 2.00 04/03/17 05:06 04/03/17 00:56 98.3 101 22 149/84 94 04/02/17 22:49 103 20 133/62 96 Nasal Cannula 2 04/02/17 21:30 114 20 177/77 95 Nasal Cannula 04/02/17 20:04 96 Nasal Cannula 2.00 04/02/17 20:00 98 Nasal Cannula 2 04/02/17 20:00 98 Nasal Cannula 2 04/02/17 19:50 20 Nasal Cannula 2 04/02/17 19:28 98.3 110 18 107/71 Physical Exam GENERAL: This is a pleasant well-nourished, well-developed patient, in no apparent distress. SKIN: No rashes, ecchymoses or lesions. Warm and dry. HEAD: Atraumatic. Normocephalic. EYES: No scleral icterus. No injection or drainage. ENT: MMM. Non-erythematous pharynx. Uvula midline. Airway patent. NECK: Trachea midline. CARDIOVASCULAR: Regular rate and rhythm. RESPIRATORY: Diffuse wheezing and rhonchi. Bronchial breath sounds. RR increased. O2 via nasal cannula. GASTROINTESTINAL: Normoactive bowel sounds. Abdomen soft, non-tender, nondistended. NEUROLOGICAL: Awake and alert. No obvious cranial nerve deficits. Normal drink box mechanic strength bilaterally. Five out of 5 muscle strength in both feet. Normal speech. PSYCHIATRIC: Normal mood and affect. Laboratory Laboratory Tests Test 04/02/17 04/02/17 04/03/17 20:15 21:16 07:06 White Blood Count 15.2 12.4 Red Blood Count 4.42 4.36 Hemoglobin 13.6 13.6 Hematocrit 41.1 40.6 Mean Corpuscular Volume 93.0 93.3 Mean Corpuscular Hemoglobin 30.8 31.3 Mean Corpuscular Hemoglobin 33.1 33.6 Concent Red Cell Distribution Width 13.4 13.8 Platelet Count 312 293 Mean Platelet Volume 7.7 7.9 Neutrophils (%) (Auto) 78.2 90.6 Lymphocytes (%) (Auto) 16.0 7.8 Monocytes (%) (Auto) 4.3 0.7 Eosinophils (%) (Auto) 0.2 0.1 Basophils (%) (Auto) 1.3 0.8 Neutrophils # (Auto) 11.9 11.2 Lymphocytes # (Auto) 2.4 1.0 Monocytes # (Auto) 0.7 0.1 Eosinophils # (Auto) 0.0 0.0 Basophils # (Auto) 0.2 0.1 CBC Comment DIFF FINAL DIFF FINAL Differential Comment Sodium Level 141 141 Potassium Level 3.7 4.2 Chloride Level 105 106 Carbon Dioxide Level 29.0 27.1 Anion Gap 7 8 Blood Urea Nitrogen 20 16 Creatinine 1.00 0.89 Estimat Glomerular Filtration 55 63 Rate Random Glucose 122 175 Lactic Acid Level 1.7 Calcium Level 8.2 8.2 Magnesium Level 2.1 Total Creatine Kinase 321 Creatine Kinase MB 3.3 Creatine Kinase MB % 1.0 Troponin I LESS THAN 0.02 B-Type Natriuretic Peptide 66 D-Dimer Quantitative (PE/DVT) 0.65 Total Bilirubin 0.4 Aspartate Amino Transf 29 (AST/SGOT) Alanine Aminotransferase 46 (ALT/SGPT) Alkaline Phosphatase 65 Total Protein 6.9 Albumin 3.2 Date/Time Procedure Status Source Growth 04/02/17 20:20 Aerobic Blood Culture - Preliminary Resulted Blood Peripheral NO GROWTH IN 1 DAY 04/02/17 20:20 Anaerobic Blood Culture - Preliminary Resulted Blood Peripheral NO GROWTH IN 1 DAY Result Diagram: 04/03/17 0706 04/03/17 0706 Imaging Last Impressions Chest X-Ray 04/02/17 1950 Signed Impressions: Service Date/Time: Sunday, April 02, 2017 20:27 - CONCLUSION: Normal examination. Thad Roa MD CT Angiography 04/02/17 0000 Signed Impressions: Service Date/Time: Sunday, April 02, 2017 22:16 - CONCLUSION: 1. Negative for pulmonary embolus. 2. Peribronchial thickening in both lungs, especially in the lower lobes with mucoid plugging and minimal cylindrical bronchiectasis. Differential diagnosis includes atypical mycobacterial infection. No significant lung consolidation. There is also mediastinal adenopathy with measurements given above. This could be reactive in nature. Followup recommended. Adria Astudillo MD Assessment and Plan Assessment and Plan 66-year-old female with: Sepsis: Heart rate 110 on arrival. White blood cell count 15.2-->12.4. Source of infection bronchitis. Lactic acid normal. -Blood cultures 2 no growth in 1 day -Antibiotics as below -Telemetry -Monitor CBC COPD exacerbation/acute bronchitis: 7 weeks of symptoms, cough, chest congestion. White blood cell count elevated. Chest x-ray without acute disease. D-dimer elevated so CTA was performed which is negative for pulmonary embolus. CTA does show peribronchial thickening in both lungs especially in the lower lobes with mucoid plugging and minimal cylindrical bronchiectasis. Radiologist states differential includes atypical mycobacterial infection. There is no significant lung consolidation. Mediastinal adenopathy could be reactive. -DuoNeb's every 4 hours scheduled and every 2 hours as needed -Solu-Medrol 40 mg every 6 hours IV -Levaquin 750 mg IV q24h -Guaifenesin 600 mg by mouth twice a day -Mucomyst to be added to DuoNeb's every 4 hours -Symbicort -[place] for cough/pain. Patient gets nausea with codeine so will avoid codeine cough syrups. -Tessalon for cough prn -Oxygen -Acapella -Consult pulmonology Environmental allergies: nasal congestion/rhinorrhea, dry throat, watery eyes. -Sudafed for nasal congestion -Claritin daily HTN: Likely related to acute illness or steroid use. -Clonidine prn SBP>160 or DBP >90 Elevated random blood glucose level: BGL 122-->175. Likely attributed to steroid use prior to hospitalization and while here. Monitor. DVT prevention: TEDs/SCDs, Lovenox. Discussed Condition With patient Physician Certification 2 Midnight Certification Type: Admission for Inpatient Services Order for Inpatient Services The services are ordered in accordance with Medicare regulations or non- Medicare payer requirements, as applicable. In the case of services not specified as inpatient-only, they are appropriately provided as inpatient services in accordance with the 2-midnight benchmark. Estimated LOS (days): 2 days is the estimated time the patient will need to remain in the hospital, assuming treatment plan goals are met and no additional complications. Post-Hospital Plan: Home Donna Zeng April 03, 2017 13:34
[2017-04-03] MEDS ORDERED: PSEUDOEPHEDRINE HCL 30 MG TAB PO PRN (14:00)
[2017-04-03] MEDS: LEVOFLOXACIN 750 MG PREMIX INJ 150 ML IV SCH (14:02)
[2017-04-03] MEDS: LORATADINE 10 MG TAB PO SCH (14:17)
[2017-04-03] MEDS: ACETAMINOPHEN/HYDROcodone 325 MG/7.5 MG TAB PO PRN ×2 (14:18→22:08)
[2017-04-03] MEDS ORDERED: cloNIDine HCL 0.1 MG TAB PO PRN (14:30)
[2017-04-03] MEDS: RESP: ACETYLCYSTEINE 20% 30 ML NEB NEB SCH ×2 (15:02→19:05)
[2017-04-03] MEDS: ENOXAPARIN SODIUM 40 MG/0.4 ML SYRINGE SQ SCH (15:24)
--- NOTE | 2017-04-03 16:58 | EKG ---
Date Performed: 04/02/2017 Time Performed: 19:57:50 PTAGE: 66 years EKG: Sinus tachycardia Compared to PREVIOUS TRACING , the patient is now tachycardic Normal ECG except for rate PREVIOUS TRA CIN01/05/2017 17.24 DOCTOR: Freya Barboza Interpretating Date/Time 04/03/2017 16:57:47
[2017-04-04] VITALS (8 sets, daily range): BP systolic 132–200; BP diastolic 75–93; PULSE 18–100; RESP 17–22; TEMP 95.7–99; O2SAT 93–98
[2017-04-04] MEDS: SODIUM CHLORIDE 0.9% FLUSH 10 ML FLUSH IV FLUSH PRN ×3 (00:43→23:29)
[2017-04-04] MEDS: methylPREDNISolone SOD SUCC 40 MG/1 ML VIAL IV PUSH SCH ×5 (00:43→23:29)
[2017-04-04] MEDS: RESP: ACETYLCYSTEINE 20% 30 ML NEB NEB SCH ×7 (01:16→23:14)
[2017-04-04] MEDS: RESP: ALBUTEROL 2.5 MG/IPRATROPIUM 0.5 MG NEB (PRN) NEB ×4 (01:16→23:14)
[2017-04-04] MEDS: ACETAMINOPHEN/HYDROcodone 325 MG/7.5 MG TAB PO PRN ×3 (05:11→20:10)
[2017-04-04] MEDS: RESP: ALBUTEROL 2.5 MG/IPRATROPIUM 0.5 MG NEB (SCH) NEB ×4 (07:40→19:10)
--- NOTE | 2017-04-04 07:54 | HHI.PR ---
Subjective Remarks Follow up for COPD exacerbation, acute bronchitis. Patient admits to breathing better than before, but states she is not ready to be discharged. Respiratory therapist informed me the patient had showered and came out of the bathroom and had a good O2 saturation of 93% on room air, 98% on 1 L. Patient states she is drinking prune juice as she gets constipated from the pain medication. Her last bowel movement was prior to coming in on 04/02. She does not desire Dulcolax which is currently available. Objective Vitals Vital Signs Date Time Temp Pulse Resp B/P Pulse Ox O2 Delivery O2 Flow Rate FiO2 04/04/17 07:40 98 Nasal Cannula 2.00 04/04/17 04:00 96.2 89 22 142/83 93 04/04/17 00:00 97.2 84 20 132/75 95 04/03/17 23:02 87 04/03/17 20:00 97.0 100 22 154/81 93 04/03/17 20:00 97 04/03/17 19:05 97 Nasal Cannula 3.00 04/03/17 16:00 96.6 95 20 164/93 95 04/03/17 12:00 96.5 108 20 166/77 93 04/03/17 08:00 96.9 93 21 160/83 91 I/O 04/03/17 04/03/17 04/03/17 04/04/17 04/04/17 04/04/17 06:59 14:59 22:59 06:59 14:59 22:59 Intake Total 900 ml 2152 ml 220 ml Output Total 450 ml 650 ml Balance 900 ml 1702 ml -430 ml Intake Oral 900 ml 600 ml 220 ml IV Total 1552 ml Output Urine Total 450 ml 650 ml # Voids 2 # Bowel Movements 0 0 Result Diagram: 04/03/17 0706 04/03/17 0706 Imaging Last Impressions Chest X-Ray 04/02/17 1950 Signed Impressions: Service Date/Time: Sunday, April 02, 2017 20:27 - CONCLUSION: Normal examination. Thad Roa MD CT Angiography 04/02/17 0000 Signed Impressions: Service Date/Time: Sunday, April 02, 2017 22:16 - CONCLUSION: 1. Negative for pulmonary embolus. 2. Peribronchial thickening in both lungs, especially in the lower lobes with mucoid plugging and minimal cylindrical bronchiectasis. Differential diagnosis includes atypical mycobacterial infection. No significant lung consolidation. There is also mediastinal adenopathy with measurements given above. This could be reactive in nature. Followup recommended. Adria Astudillo MD Objective Remarks GENERAL: Pleasant well-nourished, developed patient no apparent distress. SKIN: Warm and dry. HEAD: Atraumatic. Normocephalic. EYES: No injection or drainage. CARDIOVASCULAR: Regular rate and rhythm. RESPIRATORY: Patient currently using nebulizer treatment. Wheezing anteriorly. Rhonchi diffusely posteriorly, but no significant wheezing. GASTROINTESTINAL: Normoactive bowel sounds. Abdomen soft, non-tender, nondistended. MUSCULOSKELETAL: TEDs and SCDs in place. No pitting edema. NEUROLOGICAL: Awake and alert. Motor grossly within normal limits. Normal speech. PSYCHIATRIC: Appropriate mood and affect; insight and judgment normal. Urinary Catheter: No Vascular Central Line Catheter: No A/P Problem List: (1) Sepsis ICD Code: A41.9 Status: Acute (2) COPD exacerbation ICD Code: J44.1 Status: Acute (3) Bronchitis with bronchospasm ICD Code: J20.9 Status: Acute (4) Environmental allergies ICD Code: Z91.09 Status: Acute (5) HTN (hypertension) ICD Code: I10 Status: Acute (6) Elevated random blood glucose level ICD Code: R73.09 Status: Acute Assessment and Plan 66-year-old female with: Sepsis: Improving. Heart rate 110 on arrival. White blood cell count 15.2--> 12.4. Source of infection bronchitis. Lactic acid normal. -Blood cultures 2 no growth in 1 day -Antibiotics as below -Telemetry -04/04: HR improved. Remains afebrile. -AM CBC ordered COPD exacerbation/acute bronchitis: Improving. 7 weeks of symptoms, cough, chest congestion. White blood cell count elevated. Chest x-ray without acute disease. D-dimer elevated so CTA was performed which is negative for pulmonary embolus. CTA does show peribronchial thickening in both lungs especially in the lower lobes with mucoid plugging and minimal cylindrical bronchiectasis. Radiologist states differential includes atypical mycobacterial infection. There is no significant lung consolidation. Mediastinal adenopathy could be reactive. Influenza test negative. -DuoNeb's every 4 hours scheduled and every 2 hours as needed -Solu-Medrol 40 mg every 6 hours IV -Levaquin 750 mg IV q24h. Monitor renal function. AM BMP ordered. -Guaifenesin 600 mg by mouth twice a day -Mucomyst to be added to DuoNeb's every 4 hours -Symbicort -[place] for cough/pain. Patient gets nausea with codeine so will avoid codeine cough syrups. -Tessalon for cough prn -Oxygen -Acapella -Sputum culture pending -Legionella and Streptococcus pneumoniae antigen testing pending. -Consult pulmonology -PT consulted -04/04: Breathing improved. I went back to evaluate patient shortly after initial exam and RN was present measuring O2 saturation and it was 89-90% on RA and patient felt winded. Reapplied O2 at 2L. I informed RT who reassessed the patient and states she has gel nails. Her O2 was improved on RT's monitor and RT reduced patient's O2 back to 1L. RT will monitor. Environmental allergies: nasal congestion/rhinorrhea, dry throat, watery eyes. -Sudafed for nasal congestion -Claritin daily HTN: Improving. Likely related to acute illness or steroid use. -Clonidine prn SBP>160 or DBP >90. Patient required dose yesterday afternoon. -Continue to monitor. Elevated random blood glucose level: BGL 122-->175. Likely attributed to steroid use prior to hospitalization and while here. Monitor. Constipation: Start Kalee-Colace bid. Do not use Dulcolax at this time. Can continue prune juice. DVT prevention: TEDs/SCDs, Lovenox. Donna Zeng April 04, 2017 07:54
[2017-04-04] MEDS: DOCUSATE SODIUM 50 MG/SENNA 8.6 MG TAB PO SCH ×2 (09:10→20:09)
[2017-04-04] MEDS: SODIUM CHLORIDE 0.9% FLUSH 10 ML FLUSH IV FLUSH SCH ×2 (09:11→20:09)
[2017-04-04] MEDS: LORATADINE 10 MG TAB PO SCH (09:11)
[2017-04-04] MEDS: BUDESONIDE-FORMOTEROL 160/4.5 MCG INHALER INH SCH ×2 (09:11→20:08)
[2017-04-04] MEDS: guaiFENesin E.R. 600 MG TAB PO SCH ×2 (09:11→20:09)
[2017-04-04] MEDS: UMECLIDINIUM 62.5 MCG/VILANTEROL 25 MCG INHALER INH SCH (09:11)
--- NOTE | 2017-04-04 14:33 | MB ---
cc: SAURABH WILEY DATE OF CONSULTATION: 04/04/2017 REASON FOR CONSULTATION COPD exacerbation, bronchiectasis. HISTORY OF PRESENT ILLNESS The patient is a 66-year-old female with known history of COPD for which she is receiving bronchodilator therapy at home for several days now. The patient has been given multiple antibiotic therapy for over several week period, however, her shortness of breath the last few days is becoming more severe with excess mucoid secretion which was quite thick, difficult to expectorate. The patient has a long heavy smoking history, however, states she stopped about 3 years ago. She did have temperature elevation at home which had improved. Denies history of hemoptysis, TB or previous industrial exposure. CT scan of the chest revealed evidence of bibasilar bronchiectasis and nonspecific mediastinal adenopathy. PAST MEDICAL HISTORY 1. COPD. 2. Previous pneumonia. 3. Hyperlipidemia. 4. Right knee replacement. 5. Previous cholecystectomy. 6. Appendectomy. 7. Hysterectomy. 8. T&A as a child. 9. History of chronic plantar fasciitis. MEDICATION Medications at home include: 1. Breo once a day. 2. DuoNeb. 3. Flonase. 4. Zithromax. 5. Medrol Dosepak. 6. Atorvastatin. 7. Decongestant nasal drops. ALLERGIES CODEINE. FAMILY HISTORY Positive for heart disease, father drinks excessively. SOCIAL HISTORY Long heavy smoking history, stopped three years ago and does not drink any alcohol. 50 pack-year smoking history. No history of TB and no history of industrial exposure. Does not use drugs. REVIEW OF SYSTEMS 12-point review of systems as per HPI and past history, otherwise negative. PHYSICAL EXAMINATION VITAL SIGNS: Temperature 97, pulse 90, respirations 20, blood pressure 140/80. HEENT: Exam unremarkable. Eyes without icterus. NECK: Without adenopathy, thyroid enlargement. Central trachea. CHEST: Scattered rhonchi bilaterally, more so at the bases. No dullness to percussion noted. CARDIAC: PMI distant. S1-S2 audible. 1/6 ejection systolic murmur left sternal border. ABDOMEN: Obese, lax. Bowel sounds audible. EXTREMITIES: No clubbing, cyanosis or edema. LABORATORY DATA White count 04/03; 12,000, hemoglobin 13, hematocrit 40, platelets 293,000, sodium 141, potassium 4.2, BUN 16, creatinine 0.8. IMPRESSION 1. COPD exacerbation. 2. Bronchiectasis. 3. Obesity. 4. Hyperlipidemia. PLAN Will check the patient's pulmonary function, arterial blood gas as a baseline, continue bronchodilator therapy, antibiotic therapy, steroid therapy. A followup CT scan of the chest in 3 months or so would be appropriate to assess any significant change. We will follow the patient's course along with you and depending on progress proceed further. I do thank you for asking me to partake in Mrs. Akers' care. Saurabh Wiley MD WWW/TLL /1:58 PM /2:20 PM
[2017-04-04] MEDS: ENOXAPARIN SODIUM 40 MG/0.4 ML SYRINGE SQ SCH (14:35)
[2017-04-04] MEDS: LEVOFLOXACIN 750 MG PREMIX INJ 150 ML IV SCH (14:35)
[2017-04-04 15:26] LABS: BLOOD GAS BASE EXCESS 1.5 mmol/L (-2-2); BLOOD GAS CARBOXYHEMOGLOBIN 1.4 % (0-4); BLOOD GAS HCO3 26 mmol/L (22-26); BLOOD GAS METHEMOGLOBIN 1.2 % (0-2); BLOOD GAS O2 HGB SATURATION 93 % (90-100); BLOOD GAS OXYGEN CONTENT 17.8 Vol % (12.0-20.0); BLOOD GAS PCO2 41 mmHG (38-42); BLOOD GAS PO2 72 mmHG (61-120); BLOOD GAS TOTAL HGB 13.6 G/DL (12.0-16.0); CRITICAL VALUE NO; DRAW SITE RT RADIAL; FIO2 21 %; NUMBER OF ARTERIAL PUNCTURES 1; OXYGEN DEVICE ROOM AIR; STAT NO; TEMP CORR TO 98.6; ULNAR PULSE PRESENT
[2017-04-04] MEDS: ACETAMINOPHEN 325 MG TAB PO PRN (23:28)
[2017-04-05] VITALS (8 sets, daily range): BP systolic 130–165; BP diastolic 65–87; PULSE 90–108; RESP 18–20; TEMP 95.5–97.3; O2SAT 91–96
[2017-04-05] MEDS: ACETAMINOPHEN/HYDROcodone 325 MG/7.5 MG TAB PO PRN ×2 (02:09→08:19)
[2017-04-05] MEDS: RESP: ALBUTEROL 2.5 MG/IPRATROPIUM 0.5 MG NEB (PRN) NEB ×2 (03:14→23:23)
[2017-04-05] MEDS: RESP: ACETYLCYSTEINE 20% 30 ML NEB NEB SCH ×6 (03:15→23:23)
[2017-04-05 05:47] LABS: AUTOMATED NEUTROPHIL # 15.2 TH/MM3 (1.8-7.7); BASOPHIL # 0.1 TH/MM3 (0-0.2); BASOPHIL % 0.5 % (0.0-2.0); HEMATOCRIT 40.1 % (35.0-46.0); LYMPH % 13.4 % (9.0-44.0); LYMPHOCYTE # 2.4 TH/MM3 (1.0-4.8); MEAN CELL VOLUME 93.1 FL (80.0-100.0); MEAN CORPUSCULAR HEMOGLOBIN 31.3 PG (27.0-34.0); MEAN CORPUSCULAR HGB CONC 33.7 % (32.0-36.0); MONO % 1.9 % (0.0-8.0); NEUT % 84.2 % (16.0-70.0); PLATELET COUNT 309 TH/MM3 (150-450); RED BLOOD COUNT 4.31 MIL/MM3 (4.00-5.30); RED CELL DISTRIBUTION WIDTH 13.8 % (11.6-17.2)
[2017-04-05 05:57] LABS: BICARBONATE 27.7 MEQ/L (21.0-32.0)
[2017-04-05 06:27] LABS: HEMO FLAGS DIFF FINAL
[2017-04-05] MEDS: methylPREDNISolone SOD SUCC 40 MG/1 ML VIAL IV PUSH SCH ×3 (06:48→17:26)
[2017-04-05] MEDS: SODIUM CHLORIDE 0.9% FLUSH 10 ML FLUSH IV FLUSH PRN (06:48)
[2017-04-05] MEDS: RESP: ALBUTEROL 2.5 MG/IPRATROPIUM 0.5 MG NEB (SCH) NEB ×4 (07:08→19:23)
[2017-04-05] MEDS: LORATADINE 10 MG TAB PO SCH (08:18)
[2017-04-05] MEDS: guaiFENesin E.R. 600 MG TAB PO SCH ×2 (08:18→21:21)
[2017-04-05] MEDS: DOCUSATE SODIUM 50 MG/SENNA 8.6 MG TAB PO SCH ×2 (08:18→21:00)
[2017-04-05] MEDS: UMECLIDINIUM 62.5 MCG/VILANTEROL 25 MCG INHALER INH SCH (08:19)
[2017-04-05] MEDS: SODIUM CHLORIDE 0.9% FLUSH 10 ML FLUSH IV FLUSH SCH ×2 (08:20→21:22)
[2017-04-05] MEDS: BUDESONIDE-FORMOTEROL 160/4.5 MCG INHALER INH SCH ×2 (08:20→21:22)
[2017-04-05] MEDS ORDERED: MAGNESIUM HYDROXIDE SUSP 30 ML CUP PO PRN (10:00)
[2017-04-05] MEDS ORDERED: AZITHROMYCIN 250 MG TAB PO ONE (10:00)
[2017-04-05] MEDS ORDERED: MAGNESIUM HYDROXIDE SUSP 30 ML CUP PO ONE (10:00)
[2017-04-05] MEDS: NYSTATIN SUSP 500,000 U/5 ML CUP SWISH-SWAL SCH ×3 (11:54→21:21)
--- NOTE | 2017-04-05 12:49 | HHI.PR ---
Subjective Remarks Complaints of constipation today. Complaints of burning at her mouth. She has a history of oral candidiasis. Today she has been weaned off of her oxygen. She is able to ambulate somewhat but still gets short of breath. She feels she may be ready for discharge with functional capacity at home, tomorrow. Objective Vital Signs Date Time Temp Pulse Resp B/P Pulse Ox O2 Delivery O2 Flow Rate FiO2 04/05/17 12:35 95.5 108 19 159/81 91 04/05/17 09:30 18 04/05/17 08:36 96.5 98 18 148/79 93 04/05/17 07:08 96 21 04/05/17 04:00 96.2 90 20 130/81 96 04/05/17 00:00 95.8 90 20 150/87 96 04/04/17 20:00 88 04/04/17 20:00 95.7 87 20 156/93 96 04/04/17 19:10 96 21 04/04/17 16:05 96.1 100 17 184/91 93 04/04/17 13:05 99.0 18 18 200/84 93 I/O 04/04/17 04/04/17 04/04/17 04/05/17 04/05/17 04/05/17 07:00 15:00 23:00 07:00 15:00 23:00 Intake Total 220 ml 500 ml 480 ml Output Total 650 ml Balance -430 ml 500 ml 480 ml Intake Oral 220 ml 400 ml 480 ml IV Total 100 ml Output Urine Total 650 ml # Voids 6 # Bowel Movements 0 1 Result Diagram: 04/05/17 0535 04/05/17 0535 Imaging Last Impressions Chest X-Ray 04/02/17 1950 Signed Impressions: Service Date/Time: Sunday, April 02, 2017 20:27 - CONCLUSION: Normal examination. Thad Roa MD CT Angiography 04/02/17 0000 Signed Impressions: Service Date/Time: Sunday, April 02, 2017 22:16 - CONCLUSION: 1. Negative for pulmonary embolus. 2. Peribronchial thickening in both lungs, especially in the lower lobes with mucoid plugging and minimal cylindrical bronchiectasis. Differential diagnosis includes atypical mycobacterial infection. No significant lung consolidation. There is also mediastinal adenopathy with measurements given above. This could be reactive in nature. Followup recommended. Adria Astudillo MD Objective Remarks GENERAL: NAD, A&Ox3 SKIN: Warm and dry. HEAD: Normocephalic. EYES: No scleral icterus. No injection or drainage. NECK: Supple, trachea midline. No JVD or lymphadenopathy. CARDIOVASCULAR: Regular rate and rhythm without murmurs, gallops, or rubs. RESPIRATORY: Breath sounds equal bilaterally. No accessory muscle use. Trace wheezing bilaterally and minor rhonchi bilaterally. GASTROINTESTINAL: Abdomen soft, non-tender, nondistended. MUSCULOSKELETAL: No cyanosis, or edema. Medications and IVs Administered Medications Medications (Trade) Dose Ordered Sig/Piter Route PRN Reason Start Time Stop Time Status Last Admin Dose Admin Methylprednisolone Sodium Succinate (SoluMEDROL INJ) 40 mg Q6HR IV PUSH 04/03/17 00:00 04/05/17 11:54 Guaifenesin (Mucinex Er) 600 mg BID PO 04/03/17 09:00 04/05/17 08:18 Budesonide/ Formoterol Fumarate (Symbicort 160-4.5 Inh) 2 puff Q12HR INH 04/03/17 09:00 04/05/17 08:20 Sodium Chloride (NS Flush) 2 ml UNSCH PRN IV FLUSH FLUSH AFTER USING IV ACCESS 04/02/17 21:45 04/05/17 06:48 Sodium Chloride (NS Flush) 2 ml BID IV FLUSH 04/03/17 09:00 04/05/17 08:20 Acetaminophen 650 mg 650 mg Q6H PRN PO FEVER/PAIN SCALE 1 TO 2 04/02/17 21:45 04/04/17 23:28 Sodium Chloride (NS 1000 ml Inj) 1,000 ml @ 100 mls/hr Q10H IV 04/02/17 22:00 Hold 04/02/17 21:58 Acetaminophen/ Hydrocodone Bitart 1 tab 1 tab Q6H PRN PO PAIN 3-10 04/03/17 13:30 04/05/17 08:19 Levofloxacin/ Dextrose (Levaquin 750 Mg Premix Inj) 150 ml @ 100 mls/hr Q24H IV 04/03/17 14:00 04/04/17 14:35 Loratadine (Claritin) 10 mg DAILY PO 04/03/17 14:00 04/05/17 08:18 Clonidine (Catapres) 0.1 mg Q6H PRN PO SBP>160, DBP>90 04/03/17 14:30 04/03/17 17:04 Enoxaparin Sodium (Lovenox Inj) 40 mg Q24H SQ 04/03/17 15:00 04/04/17 14:35 Senna/Docusate Sodium (Kalee-Colace) 2 tab BID PO 04/04/17 09:00 04/05/17 08:18 Nystatin (Mycostatin Liq) 5 ml QID SWISH-SWAL 04/05/17 13:00 04/05/17 11:54 A/P Problem List: (1) Sepsis ICD Code: A41.9 (2) Bronchitis with bronchospasm ICD Code: J20.9 (3) COPD exacerbation ICD Code: J44.1 (4) HTN (hypertension) ICD Code: I10 (5) Leukocytosis ICD Code: D72.829 Assessment and Plan Assessment and Plan 66-year-old female sepsis and COPD exacerbation. Sepsis Resolved Follow clinically. COPD exacerbation Acute bronchitis Continue Levaquin. Continue steroids. Clinically improving, may be ready for discharge tomorrow Weaned off oxygen today Monitor for stability and to ensure oxygen will not be needed at discharge Robitussin Mucomyst Symbicort Acapella Allergic rhinorrhea Claritin HTN When necessary clonidine Constipation Continue Colace Milk of magnesia Follow for bowel movement DVT prevention TEDs/SCDs Lovenox. Ja Funk MD April 05, 2017 12:49 pm
[2017-04-05] MEDS: ENOXAPARIN SODIUM 40 MG/0.4 ML SYRINGE SQ SCH (15:00)
[2017-04-05] MEDS: LEVOFLOXACIN 750 MG PREMIX INJ 150 ML IV SCH (17:27)
--- NOTE | 2017-04-05 20:31 | HHI.PR ---
Subjective Remarks Alert less sob still some congestion Objective Vital Signs Date Time Temp Pulse Resp B/P Pulse Ox O2 Delivery O2 Flow Rate FiO2 04/05/17 16:39 96.5 96 18 165/65 92 04/05/17 12:35 95.5 108 19 159/81 91 04/05/17 09:30 18 04/05/17 08:36 96.5 98 18 148/79 93 04/05/17 07:08 96 21 04/05/17 04:00 96.2 90 20 130/81 96 04/05/17 00:00 95.8 90 20 150/87 96 I/O 04/04/17 04/04/17 04/04/17 04/05/17 04/05/17 04/05/17 07:00 15:00 23:00 07:00 15:00 23:00 Intake Total 220 ml 500 ml 480 ml Output Total 650 ml Balance -430 ml 500 ml 480 ml Intake Oral 220 ml 400 ml 480 ml IV Total 100 ml Output Urine Total 650 ml # Voids 6 # Bowel Movements 0 1 Result Diagram: 04/05/17 0535 04/05/17 0535 Objective Remarks GENERAL: SKIN: Warm and dry. HEAD: Atraumatic. Normocephalic. EYES: Pupils equal and round. No scleral icterus. No injection or drainage. ENT: No nasal bleeding or discharge. Mucous membranes pink and moist. NECK: Trachea midline. No JVD. CARDIOVASCULAR: Regular rate and rhythm. RESPIRATORY: No accessory muscle use. Clear to auscultation. Breath sounds equal bilaterally. GASTROINTESTINAL: Abdomen soft, non-tender, nondistended. Hepatic and splenic margins not palpable. MUSCULOSKELETAL: Extremities without clubbing, cyanosis, or edema. No obvious deformities. NEUROLOGICAL: Awake and alert. No obvious cranial nerve deficits. Motor grossly within normal limits. Five out of 5 muscle strength in the arms and legs. Normal speech. PSYCHIATRIC: Appropriate mood and affect; insight and judgment normal. Assessment and Plan Discharge Planning Laboratory Tests Test 04/02/17 04/03/17 04/05/17 21:16 07:06 05:35 D-Dimer Quantitative (PE/DVT) 0.65 MG/L FEU (0.00-0.50) White Blood Count 12.4 TH/MM3 18.0 TH/MM3 (4.0-11.0) (4.0-11.0) Neutrophils (%) (Auto) 90.6 % 84.2 % (16.0-70.0) (16.0-70.0) Lymphocytes (%) (Auto) 7.8 % (9.0-44.0) Neutrophils # (Auto) 11.2 TH/MM3 15.2 TH/MM3 (1.8-7.7) (1.8-7.7) Estimat Glomerular Filtration 63 ML/MIN (>89) 63 ML/MIN (>89) Rate Random Glucose 175 MG/DL 200 MG/DL (74-106) (74-106) Calcium Level 8.2 MG/DL 8.3 MG/DL (8.5-10.1) (8.5-10.1) Albumin 3.2 GM/DL (3.4-5.0) Blood Urea Nitrogen 21 MG/DL (7-18) Physician Attestation ass: copd exacerbation bronchictasis plan ABX Bronchodilator therapy increase activity home AM if stable Saurabh Wiley MD April 05, 2017 20:31
[2017-04-05] MEDS: ACETAMINOPHEN 325 MG TAB PO PRN (21:22)
[2017-04-06] VITALS: BP 155/83; PULSE 80; RESP 20; TEMP 96; O2SAT 95
[2017-04-06] MEDS: methylPREDNISolone SOD SUCC 40 MG/1 ML VIAL IV PUSH SCH ×2 (00:30→06:00)
[2017-04-06] MEDS: RESP: ALBUTEROL 2.5 MG/IPRATROPIUM 0.5 MG NEB (PRN) NEB (03:15)
[2017-04-06] MEDS: RESP: ACETYLCYSTEINE 20% 30 ML NEB NEB SCH ×2 (03:15→07:43)
[2017-04-06 04:00] VITALS: BP 158/94; PULSE 89; RESP 20; TEMP 96.5; O2SAT 93
[2017-04-06 07:35] LABS: HEMATOCRIT 42.3 % (35.0-46.0); MEAN CELL VOLUME 94.8 FL (80.0-100.0); MEAN CORPUSCULAR HEMOGLOBIN 30.8 PG (27.0-34.0); MEAN CORPUSCULAR HGB CONC 32.5 % (32.0-36.0); PLATELET COUNT 310 TH/MM3 (150-450); RED BLOOD COUNT 4.47 MIL/MM3 (4.00-5.30); RED CELL DISTRIBUTION WIDTH 14.1 % (11.6-17.2); REVIEW FLAG FINAL; WHITE BLOOD COUNT 18.7 TH/MM3 (4.0-11.0)
[2017-04-06] MEDS: RESP: ALBUTEROL 2.5 MG/IPRATROPIUM 0.5 MG NEB (SCH) NEB (07:43)
[2017-04-06 07:45] VITALS: O2SAT 97
[2017-04-06 07:51] LABS: POTASSIUM 4.5 MEQ/L (3.5-5.1)
[2017-04-06 07:56] LABS: BICARBONATE 29.8 MEQ/L (21.0-32.0)
[2017-04-06 08:00] VITALS: BP 156/89; PULSE 84; RESP 19; TEMP 98; O2SAT 96
[2017-04-06] MEDS ORDERED: PRED10PA PO (08:54)
[2017-04-06] MEDS ORDERED: LACTTAB8 PO (08:54)
[2017-04-06] MEDS ORDERED: LEVA500T PO (08:54)
[2017-04-06] MEDS ORDERED: AZIT250T3 PO (08:54)
--- NOTE | 2017-04-06 08:58 | HHI.DS ---
Discharge Summary Admission Date April 03, 2017 at 1:26 pm Discharge Date: April 06, 2017 Admitting Diagnosis bronchitis w/ bronchospasm (1) Sepsis ICD Code: A41.9 Diagnosis: Principal (2) COPD exacerbation ICD Code: J44.1 Diagnosis: Principal (3) Bronchitis with bronchospasm ICD Code: J20.9 Diagnosis: Principal (4) Environmental allergies ICD Code: Z91.09 Diagnosis: Principal (5) HTN (hypertension) ICD Code: I10 Diagnosis: Principal (6) Elevated random blood glucose level ICD Code: R73.09 Diagnosis: Principal Procedures none Brief History - From Admission Written by Donna Zeng PA-C acting as scribe for Dr. Brink on 04/03/17 at ~ 1300. 66-year-old female with history of HLD, occasional indigestion, and mycoplasma pneumonia per patient is admitted for COPD exacerbation/acute bronchitis. The patient states that she "couldn't breathe". The patient states symptom onset was 7 weeks ago and she has been undergoing treatment by her primary care physician. She states she had been prescribed a Z-Gabe, 2 courses of Medrol Dosepak, and has been using four nebulizers per day without relief. Also states she has a "steroid puffer". She denies diagnosis of COPD but has a 50 year smoking history. States she had one fever of "99". Admits to cough , and points to epigastric region stating she has to hold the area because she feels like she a hernia from coughing; denies abdominal pain otherwise. She states she is full of phlegm in her chest, but cannot cough it up. She states she vomited yesterday from regurgitation after eating dinner. She denies oxygen use at home. She has a headache over the jew regions bilaterally from coughing. Right now she has some watery eyes and runny nose and has been on Zyrtec for allergies. Admits to dry throat, but no soreness. Admits to dizziness after neb use. Denies diarrhea. CBC/BMP: 04/06/17 0540 04/06/17 0540 Significant Findings Laboratory Tests Test 04/05/17 04/06/17 05:35 05:40 White Blood Count 18.0 TH/MM3 18.7 TH/MM3 (4.0-11.0) (4.0-11.0) Neutrophils (%) (Auto) 84.2 % (16.0-70.0) Neutrophils # (Auto) 15.2 TH/MM3 (1.8-7.7) Blood Urea Nitrogen 21 MG/DL (7-18) 20 MG/DL (7-18) Estimat Glomerular Filtration 63 ML/MIN (>89) 79 ML/MIN (>89) Rate Random Glucose 200 MG/DL 167 MG/DL (74-106) (74-106) Calcium Level 8.3 MG/DL 8.4 MG/DL (8.5-10.1) (8.5-10.1) PE at Discharge GENERAL: NAD, A&Ox3 SKIN: Warm and dry. HEAD: Normocephalic. EYES: No scleral icterus. No injection or drainage. NECK: Supple, trachea midline. No JVD or lymphadenopathy. CARDIOVASCULAR: Regular rate and rhythm without murmurs, gallops, or rubs. RESPIRATORY: Breath sounds equal bilaterally. No accessory muscle use. Trace wheezing bilaterally. GASTROINTESTINAL: Abdomen soft, non-tender, nondistended. MUSCULOSKELETAL: No cyanosis, or edema. Hospital Course Mrs. Akers is a 66-year-old female admitted with bronchitis, sepsis, and COPD exacerbation. Her respiratory symptoms have been present for about 6 weeks and worsen acutely prior to coming into the ER. Treatment had good response but was slow going and recovery. Today she is off oxygen and able to ambulate at a functional status. She is not yet back to her baseline status but is approaching this. Etiology for her bronchitis may be secondary to atypical infection. Appropriate treatments are in place. She will discharge to complete her Levaquin, with 12 more days of azithromycin, and a 10 mg prednisone taper. No oxygen or pain medicines. At discharge. Medically stable for discharge today. Pt Condition on Discharge: Stable Discharge Disposition: Discharge Home Discharge Time: > 30 minutes Discharge Instructions DIET: Follow Instructions for: As Tolerated, No Restrictions Activities you can perform: Regular-No Restrictions Follow up Referrals: PCP Follow-up - 1 Week Pulmonology - 1 Week with Saurabh Wiley MD New Medications: Azithromycin (Azithromycin) 250 Mg Tab 250 MG PO DAILY Infection #12 Ref 0 TAB Lactobacillus Acidophilus (Lactobacillus Acidophilus) 1 Tab Tab 1 TAB PO TIDAC Nutritional Supplement #60 Ref 0 TAB Levofloxacin (Levaquin) 500 Mg Tab 500 MG PO DAILY Infection #2 Ref 0 TAB Prednisone (21) 10 mg tab Dose Pack (Prednisone (21) 10 mg tab Dose Pack) 10 Mg Pack 10 MG PO DIRECTED Inflammation #1 Ref 0 DSPK Continued Medications: Atorvastatin (Atorvastatin) 10 Mg Tab Unknown Dose PO HS Cholesterol Management #30 Ref 0 TAB Cetirizine (Cetirizine) 10 Mg Tab 10 MG PO DAILY Allergies Ref 0 TAB Fluticasone Nasal [place] (Flonase Nasal [place]) 50 Mcg/Act [place] 50 MCG EACH NARE BID Allergies #1 Ref 0 BOTTLE Fluticasone-Vilanterol Inh (Breo Ellipta Inh) 100-25 Mcg/Act Inh 1 PUFF INH DAILY Use daily at the same time. #1 Ref 0 INHALER Ipratropium-Albuterol Neb (Duoneb) 0.5-2.5 Mg/3 Ml Neb 1 NEBULE INH Q6HR NEB Breathing Treatment #120 Ref 0 NEBULE Umeclidinium-Vilanterol Inh (Anoro Ellipta Inh) 62.5-25 Mcg/Act Aero 1 PUFF INH DAILY COPD #1 Ref 0 INHALER Discontinued Medications: Azithromycin (Azithromycin) 500 Mg Tab 500 MG PO DAILY Infection #5 Ref 0 TAB Methylprednisolone (Methylprednisolone) 4 Mg Tab 4 MG PO DAILY Ref 0 TAB Kcmssrrtxrvlcuq-Uyclpqriabpuqxj-VT Liq (Bromfed DM Liq) 30-2-10 Mg/5 Ml Syrp 10 ML PO Q6H PRN COUGH AND/OR COLD SYMPTOMS #1 Ref 0 BOTTLE Ja Funk MD April 06, 2017 8:58 am
[2017-04-06] MEDS ORDERED: AZITHROMYCIN 250 MG TAB PO SCH (09:00)
[2017-04-06] MEDS: SODIUM CHLORIDE 0.9% FLUSH 10 ML FLUSH IV FLUSH SCH (09:42)
[2017-04-06] MEDS: UMECLIDINIUM 62.5 MCG/VILANTEROL 25 MCG INHALER INH SCH (09:42)
[2017-04-06] MEDS: guaiFENesin E.R. 600 MG TAB PO SCH (09:43)
[2017-04-06] MEDS: BUDESONIDE-FORMOTEROL 160/4.5 MCG INHALER INH SCH (09:43)
[2017-04-06] MEDS: DOCUSATE SODIUM 50 MG/SENNA 8.6 MG TAB PO SCH (09:43)
[2017-04-06] MEDS: LORATADINE 10 MG TAB PO SCH (09:43)
[2017-04-06] MEDS: NYSTATIN SUSP 500,000 U/5 ML CUP SWISH-SWAL SCH (09:43)
--- NOTE | 2017-04-12 09:15 | RSPPFT ---
DATE OF PROCEDURE: 04/04/17 COMMENTS: Spirometry with FVC of 1.5, FEV1 of 1.4, FEV1/FVC ratio at 94%. A positive and significant response to acutely inhaled bronchodilator noted. IMPRESSION: 1. Decreased flow rates. 2. No gross obstruction. 3. Positive response to inhaled bronchodilator. 4. Spirometry is suggestive of airways restriction. If clinically warranted lung volumes may be helpful
== END 2017-04-06 11:00 | disposition home or self-care (01) | DRG 872 ==
LOC: PHED 19:23 → PHEDA 21:27 → PH3A 23:28 → OBSVTOIN 04-03 13:26
PROVIDERS: ADMIT Hospitalist; ATTEND Hospitalist
DX: A41.9 Sepsis, unspecified organism (principal); J44.0 Chronic obstructive pulmonary disease with (acute) lower respiratory infection; J44.1 Chronic obstructive pulmonary disease with (acute) exacerbation; Z68.41 Body mass index [BMI] 40.0-44.9, adult; I10 Essential (primary) hypertension; E78.5 Hyperlipidemia, unspecified; J20.9 Acute bronchitis, unspecified; K59.00 Constipation, unspecified; E66.9 Obesity, unspecified; Z87.891 Personal history of nicotine dependence
CPT/HCPCS: 36600; 71010; 71275; 76937; 80048; 80053; 82550; 82552; 82805; 83605; 83735; 83880; 84484; 85025; 85027; 85379; 87040; 87070; 87205; 87449; 87804; 93005; 94060; 94640; 94664; 94667; 94668; 96374; 96375; J1650; J1956; J2060; J2543; J2920; J2930; J7030; J7608; Q9967

== ENCOUNTER → 2017-08-30 | Day surgery (SDC) | payer OTHER ==
[~2017-08-30] VITALS: Ht 154.9 cm; Wt 107.5 kg
[~2017-08-30] MED LIST changes: +ASCO1CAP PO; +CALC1TAB87 PO; +CHLORHEXIDINE GLUCONATE 2 % 1 PACK (2 CLOTHS) TOPICAL PRN; +CITA10TA4 PO; +DO NOT ADM ANY ANTICOAGULANT DRUGS PRN; +INSULIN HUMAN REGULAR 1,000 UNITS/10 ML VIAL SQ PRN; +LACTATED RINGER'S 1000 ML IV PRN; +LIDOCAINE HCL 1% PF 5 ML AMPULE OTHER ONE; +METOPROLOL TARTRATE 25 MG TAB PO PRN; +POVIDONE IODINE 5% (ANTISEPSIS KIT) 4 APPLICATIONS EACH NARE PRN; +PROPOFOL 200 MG/20 ML AMP IV ONE; +SODIUM CHLORID 0.9% 500 ML IV PRN
[2017-08-30 06:27] LABS: AUTOMATED NEUTROPHIL # 5.5 TH/MM3 (1.8-7.7); BASOPHIL # 0.1 TH/MM3 (0-0.2); BASOPHIL % 0.6 % (0.0-2.0); EOSINOPHIL # 0.4 TH/MM3 (0-0.4); EOSINOPHIL % 4.2 % (0.0-4.0); HEMO FLAGS DIFF FINAL; LYMPH % 27.7 % (9.0-44.0); LYMPHOCYTE # 2.5 TH/MM3 (1.0-4.8); MEAN CELL VOLUME 91.7 FL (80.0-100.0); MEAN CORPUSCULAR HEMOGLOBIN 31.2 PG (27.0-34.0); NEUT % 62.5 % (16.0-70.0); PLATELET COUNT 252 TH/MM3 (150-450); RED BLOOD COUNT 4.15 MIL/MM3 (4.00-5.30); RED CELL DISTRIBUTION WIDTH 12.8 % (11.6-17.2); WHITE BLOOD COUNT 8.9 TH/MM3 (4.0-11.0)
[2017-08-30 06:38] LABS: APTT (PATIENT) 27.8 SEC (24.3-30.1); INTERNATIONAL NORMALIZED RATIO 0.9 RATIO; PROTHROMBIN TIME - PATIENT 10.3 SEC (9.8-11.6)
--- NOTE | 2017-08-30 08:52 | MR ---
cc: SAURABH WILEY M.D. DATE: 08/30/2017 PROCEDURE Fiberoptic bronchoscopy flexible. REASON FOR BRONCHOSCOPY Bronchiectasis, possible atypical TB. DETAILS OF PROCEDURE Fiberoptic bronchoscopy performed via LMA. Vocal cords intact. Trachea moderately hyperemic. Bri sharp. Diffuse hyperemia and excess mucoid secretion throughout the tracheobronchial tree noted. Right upper, middle and lower lobes, left upper and lower lobes inspected. No obstructive pathology or mass lesion seen. Washings obtained from both sides of the tracheobronchial tree for routine, TB, fungal culture and cytological exam. Cytologic brush biopsy right lower lung lobe obtained as well for cytological exam which was more hyperemic than the rest of the tracheobronchial tree. Diffuse hyperemia throughout and easy collapsibility of the airways is quite noticeable. IMPRESSION 1. Moderate tracheobronchitis. 2. Excess mucoid secretion. 3. Samples obtained as above. 4. Procedure well-tolerated. 5. Patient transferred to Recovery in stable condition. Saurabh Wiley MD WWW/JIMMY /8:22 AM /8:34 AM
[2017-08-30 10:00] VITALS: BP 155/79; PULSE 68; RESP 18; TEMP 97.9; O2SAT 94
== END | disposition home or self-care (01) ==
LOC: HSDC 05:04
PROVIDERS: ATTEND Internal Medicine Sleep Medicine
DX: J47.9 Bronchiectasis, uncomplicated (principal); J40 Bronchitis, not specified as acute or chronic; Z01.812 Encounter for preprocedural laboratory examination
CPT/HCPCS: 00520; 31622; 85025; 85610; 85730; 87015; 87070; 87102; 87116; 87205; 87206; 88112; 88305; 88312; J7120

== ENCOUNTER 2017-10-26 05:35 | Inpatient (IN) | payer OTHER, MEDICARE ==
[~2017-10-26] VITALS: Ht 154.9 cm; Wt 100.9 kg
[~2017-10-26 05:35] MED LIST changes: -ASCO1CAP PO; -CALC1TAB87 PO; -CHLORHEXIDINE GLUCONATE 2 % 1 PACK (2 CLOTHS) TOPICAL PRN; -DO NOT ADM ANY ANTICOAGULANT DRUGS PRN; -INSULIN HUMAN REGULAR 1,000 UNITS/10 ML VIAL SQ PRN; -LACTATED RINGER'S 1000 ML IV PRN; -LIDOCAINE HCL 1% PF 5 ML AMPULE OTHER ONE; -METOPROLOL TARTRATE 25 MG TAB PO PRN; -POVIDONE IODINE 5% (ANTISEPSIS KIT) 4 APPLICATIONS EACH NARE PRN; -PROPOFOL 200 MG/20 ML AMP IV ONE; -SODIUM CHLORID 0.9% 500 ML IV PRN
[2017-10-26] MEDS ORDERED: ONDANSETRON HCL 4 MG/2 ML VIAL IV PUSH SCH (07:00)
[2017-10-26] MEDS ORDERED: SODIUM CHLORID 0.9% 500 ML IV PRN (07:00)
[2017-10-26] MEDS ORDERED: LACTATED RINGER'S 1000 ML IV PRN (07:00)
[2017-10-26] MEDS ORDERED: INSULIN HUMAN REGULAR 1,000 UNITS/10 ML VIAL SQ PRN (07:00)
[2017-10-26] MEDS ORDERED: metroNIDAZOLE 500 MG INJ 100 ML IV SCH (07:00)
[2017-10-26] MEDS ORDERED: METOPROLOL TARTRATE 25 MG TAB PO PRN (07:00)
[2017-10-26] MEDS ORDERED: ACETAMINOPHEN 1000 MG/100 ML 100 ML IV SCH (07:00)
[2017-10-26] MEDS ORDERED: ceFAZolin 2 GM PREMIX 50 ML IV SCH (07:00)
[2017-10-26] MEDS ORDERED: CHLORHEXIDINE GLUCONATE 2 % 1 PACK (2 CLOTHS) TOPICAL PRN (07:00)
[2017-10-26] MEDS ORDERED: APREPITANT 40 MG CAP PO SCH (07:00)
[2017-10-26] MEDS ORDERED: POVIDONE IODINE 5% (ANTISEPSIS KIT) 4 APPLICATIONS EACH NARE PRN (07:00)
[2017-10-26] MEDS ORDERED: SCOPOLAMINE 1.5 MG PATCH T-DERMAL SCH (07:00)
[2017-10-26] MEDS ORDERED: BUPIVACAINE/EPINEPHRINE 0.25% PF 30 ML VIAL ONE (08:59)
[2017-10-26] MEDS ORDERED: ACETAMINOPHEN 1000 MG/100 ML 0 ML IV ONE (09:00)
[2017-10-26] MEDS ORDERED: SUGAMMADEX SODIUM 200 MG/2 ML VIAL IV PUSH ONE ×2 (09:00)
[2017-10-26] MEDS ORDERED: METHYLENE BLUE 100 MG/10 ML VIAL OTHER ONE (10:30)
[2017-10-26] MEDS ORDERED: DO NOT ADM ANY ANTICOAGULANT DRUGS PRN (11:29)
[2017-10-26] MEDS ORDERED: *morphine SULFATE 8 MG/ML PERIprocedure ONLY ONE ×2 (11:53→12:07)
[2017-10-26] MEDS ORDERED: ENALAPRILAT 1.25 MG/ML VIAL IV PUSH PRN (12:15)
[2017-10-26] MEDS ORDERED: Post-op Orders (for Pharmacy) OTHER ONE (12:15)
[2017-10-26] MEDS ORDERED: ACETAMINOPHEN 325MG/HYDROcodone 7.5MG/15ML UDC PO PRN ×2 (12:15)
[2017-10-26] MEDS ORDERED: NALOXONE HCL 0.4 MG/ML AMP IV PUSH PRN (12:15)
[2017-10-26] MEDS ORDERED: diphenhydrAMINE HCL 50 MG/ML VIAL IV PUSH PRN (12:15)
[2017-10-26] MEDS ORDERED: ONDANSETRON HCL 4 MG/2 ML VIAL IV PUSH PRN (12:15)
[2017-10-26] MEDS ORDERED: diphenhydrAMINE HCL ELIXIR 12.5 MG/5 ML CUP PO PRN (12:15)
[2017-10-26] MEDS ORDERED: MORPHINE SULFATE 30 MG/30 ML PCA IV SCH (12:15)
[2017-10-26] MEDS ORDERED: SODIUM CHLORIDE 0.9% FLUSH 10 ML FLUSH IV FLUSH PRN (12:15)
--- NOTE | 2017-10-26 12:19 | HHI.PR ---
Immediate Post Op Note Procedure Date: Oct 26, 2017 Pre Op Diagnosis: morbid obesity, bmi 43, hypercholesteremia, osteoarthritis Post Op Diagnosis: same Surgeon: Rai Mcallister MD Geologic Technician(s): Galina Procedure: lap sleeve gastrectomy with HH repair Findings: RUQ adhesion, no leak on methylene blue Complications: none Specimen(s) removed: none Estimated blood loss: 5cc Anesthesia: General Drains: None Patient to: PACU Patient Condition: Good Rai Mcallister MD Oct 26, 2017 12:19
[2017-10-26] MEDS: D5-1/2 NS + KCL 20 MEQ INJ 1,000 ML IV SCH ×2 (12:20→20:30)
[2017-10-26] MEDS: METOCLOPRAMIDE HCL 10 MG/2 ML VIAL IV PUSH SCH ×2 (14:00→20:29)
[2017-10-26] MEDS: PCA - TOTAL MG MORPHINE DELIVERED PER SHIFT SCH ×2 (14:00→22:00)
[2017-10-26] MEDS: ACETAMINOPHEN 1000 MG/100 ML 100 ML IV SCH ×2 (14:00→20:29)
[2017-10-26 14:30] VITALS: BP 134/55; PULSE 101; RESP 19; TEMP 96.4; O2SAT 93
[2017-10-26] MEDS: PANTOPRAZOLE SOD 40 MG DELAYED RELEASE TAB PO SCH (15:23)
[2017-10-26 16:00] VITALS: BP 132/62; PULSE 71; RESP 18; TEMP 96.2; O2SAT 95
[2017-10-26] MEDS ORDERED: ENOXAPARIN SODIUM 40 MG/0.4 ML SYRINGE SQ SCH (16:00)
[2017-10-26] MEDS: metroNIDAZOLE 500 MG INJ 100 ML IV SCH ×2 (16:05→23:59)
[2017-10-26 20:00] VITALS: BP 102/56; PULSE 69; RESP 16; TEMP 96.3; O2SAT 96
[2017-10-26] MEDS: SODIUM CHLORIDE 0.9% FLUSH 10 ML FLUSH IV FLUSH SCH (20:29)
[2017-10-26 21:02] VITALS: O2SAT 95
[2017-10-27] VITALS (7 sets, daily range): BP systolic 117–130; BP diastolic 57–63; PULSE 57–82; RESP 16–18; TEMP 96.3–98.8; O2SAT 94–99
[2017-10-27] MEDS: RESP: ALBUTEROL 2.5 MG/3 ML NEB (SCH) INH ×5 (00:21→16:00)
[2017-10-27] MEDS: ACETAMINOPHEN 1000 MG/100 ML 100 ML IV SCH ×2 (02:07→08:06)
[2017-10-27] MEDS: METOCLOPRAMIDE HCL 10 MG/2 ML VIAL IV PUSH SCH ×2 (02:08→08:07)
[2017-10-27] MEDS: D5-1/2 NS + KCL 20 MEQ INJ 1,000 ML IV SCH ×2 (05:30→13:30)
[2017-10-27] MEDS: PCA - TOTAL MG MORPHINE DELIVERED PER SHIFT SCH ×2 (06:00→14:00)
[2017-10-27 07:47] LABS: AUTOMATED NEUTROPHIL # 12.5 TH/MM3 (1.8-7.7); BASOPHIL # 0.1 TH/MM3 (0-0.2); BASOPHIL % 0.5 % (0.0-2.0); HEMATOCRIT 39.9 % (35.0-46.0); HEMO FLAGS DIFF FINAL; LYMPH % 10.5 % (9.0-44.0); LYMPHOCYTE # 1.6 TH/MM3 (1.0-4.8); MEAN CELL VOLUME 93.8 FL (80.0-100.0); MEAN CORPUSCULAR HEMOGLOBIN 30.7 PG (27.0-34.0); MEAN CORPUSCULAR HGB CONC 32.8 % (32.0-36.0); PLATELET COUNT 325 TH/MM3 (150-450); RED BLOOD COUNT 4.25 MIL/MM3 (4.00-5.30); RED CELL DISTRIBUTION WIDTH 13.5 % (11.6-17.2); WHITE BLOOD COUNT 14.8 TH/MM3 (4.0-11.0)
[2017-10-27] MEDS: PANTOPRAZOLE SOD 40 MG DELAYED RELEASE TAB PO SCH (08:07)
[2017-10-27] MEDS: SODIUM CHLORIDE 0.9% FLUSH 10 ML FLUSH IV FLUSH SCH (08:07)
[2017-10-27] MEDS: metroNIDAZOLE 500 MG INJ 100 ML IV SCH (08:08)
[2017-10-27 08:10] LABS: MAGNESIUM 2.1 MG/DL (1.5-2.5); POTASSIUM 4.5 MEQ/L (3.5-5.1)
--- NOTE | 2017-10-27 09:08 | MP ---
cc: NUVIA MCALLISTER MD DATE OF SURGERY: 10/26/2017 PREOPERATIVE DIAGNOSIS Morbid obesity, BMI 43, hypercholesteremia, osteoarthritis. POSTOPERATIVE DIAGNOSIS Morbid obesity, BMI 43, hypercholesteremia, osteoarthritis. PROCEDURE PERFORMED 1. Laparoscopic sleeve gastrectomy over 30-Palestinian bougie. 2. Laparoscopic hiatal hernia repair. SURGEON Dr. Nuvia Mcallister. TRA[employer] AND [employer]ALITY MA[employer]GER [place]. ANESTHESIA GETA. IV FLUIDS See anesthesia sheet. ESTIMATED BLOOD LOSS 10 ccs. DRAINS None. COMPLICATIONS None. WOUND CLASSIFICATION Clean contaminated. FINDINGS No leak on methylene blue. SPECIMENS None. COMPLICATIONS None. INDICATION The patient is a 66-year-old female who presented with multiple attempts at weight loss, morbid obesity and multiple comorbidities. She was unsuccessful with her attempted weight loss. Therefore, decision was made for bariatric surgery including laparoscopic sleeve gastrectomy. PROCEDURE IN DETAIL The patient was taken to the operating suite, placed in supine position. She was prepped and draped in usual sterile fashion after induction of general endotracheal anesthesia. Brief time-out was done demonstrating correct patient, procedure, surgical site, we are all in agreement. Attention was directed to the 15 cm distal to the xyphoid. Local anesthetic was injected. A 5 mm Opti-Port was used to place in the 5-mm port. This was done under direct visualization. Pneumoperitoneum was done for 2 liters. On closer inspection no evidence of injury, several other ports placed including one right upper quadrant port, liver retractor 5 mm followed by a right lower quadrant 15 mm port followed by two 5 mm left lower quadrant and mid quadrant ports. The patient was placed in reverse Trendelenburg and air-planed to the right. Danii-flex retractor was placed to retract the left lobe of the liver. The vasculature to the greater curve was identified. There is no more adhesions that needed to be taken down. The vasculature of the greater curve was taken down using harmonic scalpel all the way from 5 cm from the pylorus, all the way up to the angle of His. Posterior attachments were also taken down with harmonic scalpel. A 6 Palestinian viSiGi bougie that was placed by anesthesia at the beginning of the case was placed on suction and advanced down the stomach. Division of stomach was started 5 cm from the pylorus and carried all the way up to angle of His. Approximately 80% of the stomach was removed. This was done with a Endo-ANGELITA stapler, initial black load followed by green loads and several gold loads. This was done with reinforced SeamGuard. This was done up to distance of 2 cm from the angle of His and approximately a centimeter from the GE junction staple line. The methylene blue was then instilled 60 ccs x2 without evidence of leaking. Again noted some adhesions that were taken down bluntly. The gastrocolic ligament was sutured to the SeamGuard using a 2-0 Stratafix running suture. Hemostasis was obtained. Evicel was sprayed at all staple lines in order to improve hemostasis. Next, the liver retractor was removed. The hiatus was also identified, there is noted upon dissection to be hiatal hernia. This was bluntly mobilized to the esophagus up to the GE junction in order to fully identify the left and right hossein. Once the stomach was noted to be reduced, the esophagus was ___ intraabdominal, the hiatus was closed using 0-Silk suture with a [id number] fashion. This was done loosely enough that the esophagus fit comfortably within the anterior abdominal cavity. Next, the liver retractor was removed under direct visualization and again noted stomach was removed. All lap and instrument counts were correct at the end of the procedure. The 15-mm port was closed with 0 Vicryl suture closure device, 4-0 Monocryl closed at all other port sites. Sterile dressings placed. The patient tolerated the procedure well. There was no intraoperative complication. The patient was extubated and taken to the Post Anesthesia Care Unit. MD MEMO Cantu/BRADLEY /7:06 PM /8:24 AM
[2017-10-27] MEDS ORDERED: METOCLOPRAMIDE HCL 10 MG/2 ML VIAL IV PUSH PRN (12:15)
--- NOTE | 2017-10-27 15:47 | HHI.PR ---
Subjective Subjective Notes No GI complaints Good pain control Objective Vitals/I&O Vital Signs Date Time Temp Pulse Resp B/P (MAP) Pulse Ox O2 Delivery O2 Flow Rate FiO2 10/27/17 12:00 97.2 62 16 123/63 (83) 96 10/27/17 08:10 Room Air 10/26/17 21:02 21 10/26/17 20:30 4.00 Labs Laboratory Tests Test 10/27/17 07:00 White Blood Count 14.8 Red Blood Count 4.25 Hemoglobin 13.1 Hematocrit 39.9 Mean Corpuscular Volume 93.8 Mean Corpuscular Hemoglobin 30.7 Mean Corpuscular Hemoglobin Concent 32.8 Red Cell Distribution Width 13.5 Platelet Count 325 Mean Platelet Volume 8.9 Neutrophils (%) (Auto) 85.0 Lymphocytes (%) (Auto) 10.5 Monocytes (%) (Auto) 4.0 Eosinophils (%) (Auto) 0.0 Basophils (%) (Auto) 0.5 Neutrophils # (Auto) 12.5 Lymphocytes # (Auto) 1.6 Monocytes # (Auto) 0.6 Eosinophils # (Auto) 0.0 Basophils # (Auto) 0.1 CBC Comment DIFF FINAL Differential Comment Blood Urea Nitrogen 12 Creatinine 0.80 Random Glucose 118 Calcium Level 8.1 Magnesium Level 2.1 Sodium Level 139 Potassium Level 4.5 Chloride Level 106 Carbon Dioxide Level 29.0 Anion Gap 4 Estimat Glomerular Filtration Rate 72 Abdomen: Post-op tenderness Extremities: Perfused Wound Wound : Wound Location: Abdomen Appearance: Clean & Dry A/P Assessment and Plan 66yo F POD# laparoscopic VSG with hiatal hernia repair -Transition to oral pain control -Continue to increase PO fluids as tolerated -Continue with frequent ambulation Discharge Planning D/C home most likely later on today Junior Markham Oct 27, 2017 15:47
[2017-10-27] MEDS ORDERED: CARA1SUS3 PO (16:08)
[2017-10-27] MEDS ORDERED: SUCRALFATE 1 GM/10 ML CUP PO ONE (16:15)
== END 2017-10-27 17:05 | disposition home or self-care (01) | DRG 621 ==
LOC: HSDI 05:35 → N07B 14:30
PROVIDERS: ADMIT Surgery; ATTEND Surgery
PROC: 0BQT4ZZ Repair Diaphragm, Percutaneous Endoscopic Approach (ICD-10-PCS; 2017-10-26)
PROC: 0DB64Z3 Excision of Stomach, Percutaneous Endoscopic Approach, Vertical (ICD-10-PCS; principal; 2017-10-26 09:19)
DX: E66.01 Morbid (severe) obesity due to excess calories (principal); K44.9 Diaphragmatic hernia without obstruction or gangrene; Z68.41 Body mass index [BMI] 40.0-44.9, adult; F41.9 Anxiety disorder, unspecified; M19.90 Unspecified osteoarthritis, unspecified site; E78.00 Pure hypercholesterolemia, unspecified
CPT/HCPCS: 80048; 83735; 85025; 94150; 94640; 94664; J0131; J0690; J1650; J2270; J2405; J2765; J3480; J7120; J7613; J8501